=== PATIENT | female | born 1935 | race Hispanic/Latino ===

== ENCOUNTER 2017-10-21 07:03 | Day surgery (SDC) | payer MEDICARE ==
[2017-10-21 07:49] VITALS: BMI 16.5
[2017-10-21] MEDS ORDERED: Etomidate 20 mg/10ml Inj IV ONE (08:50)
[2017-10-21] MEDS ORDERED: Propofol 10 mg/ml Inj (20 ML) ONE (08:50)
[2017-10-21] MEDS ORDERED: ePHEDrine 50 mg/ml Inj ONE (08:51)
--- NOTE | 2017-10-21 08:54 | CP.SDSHP ---
Same Day Surgery H & P - History Proposed Procedure: colonoscopy Pre-Op Diagnosis: constipation. rectal bleeding. colon mass on CT Scan. weight loss - Previous Medical/Surgical History Previous Surgical History: Laparoscopy many years ago - Allergies Allergies: Allergies No Known Allergies Allergy (Verified 10/21/17 07:48) - Physical Exam General Appearance: cachectic and frail Vital Signs: Vital Signs 10/21/17 10/21/17 08:05 08:30 Pulse Rate 107 H 107 H Mental Status: Alert & Oriented x3 Neuro: WNL Heart: WNL Lungs: WNL GI: WNL - {Optional Preform as Required} DIRECTOR OF EMERGENCY NURSING: Other (Perineal cystic mass) - Impression Impression: constipation. rectal bleeding. abnormal CT Scan of colon. weight loss Pt. Evaluated Today:Candidate for Anesthesia & Procedure: Yes - Date & Time Date: 10/21/17 Time: 08:54 Short Stay Discharge - Short Stay Discharge Admitting Diagnosis/Reason for Visit: ABNORMAL IMAGING, CONSTIPATION UNSPEC, DIVIRTICUL Disposition: HOME/ ROUTINE
[2017-10-21] MEDS ORDERED: Lactated Ringer's 1,000 ML IV ONE (08:55)
[2017-10-21 09:41] VITALS: TEMP 98.4
[2017-10-21 10:19] VITALS: O2SAT 100
[2017-10-21 14:13] VITALS: BP 137/89; PULSE 99; RESP 16
--- NOTE | 2017-10-21 15:56 | CP.PCM.PCO ---
Physician Communication Note - Physician Communication Note Physician Communication Note: Handwritten progress note in chart. Discussed with PMD and GI.
== END 2017-10-21 14:15 | disposition home or self-care (01) ==
LOC: C.ENDO 07:03
PROVIDERS: ATTEND Internal Medicine Gastroenterology
DX: D12.3 Benign neoplasm of transverse colon (principal); K57.30 Diverticulosis of large intestine without perforation or abscess without bleeding; K64.2 Third degree hemorrhoids; K59.00 Constipation, unspecified; R63.4 Abnormal weight loss
CPT/HCPCS: 45380; 45381; 88305; J2001; J2405; J2704; J7120

== ENCOUNTER 2017-11-19 06:02 | Inpatient (IN) | payer MEDICARE ==
[2017-11-19] MEDS ORDERED: ceFAZolin IV 1 gm in Dextrose 1 GM/50 ML BAG IVPB ONE (07:59)
[2017-11-19] MEDS ORDERED: metroNIDAZOLE IV 500 mg/100 ml 500 MG/100 ML BAG ONE (08:00)
[2017-11-19] MEDS ORDERED: Propofol 10 mg/ml Inj (20 ML) ONE (08:08)
[2017-11-19] MEDS ORDERED: Rocuronium 10 mg/ml (5 ml) ONE (08:15)
[2017-11-19] MEDS ORDERED: Phenylephrine 10 mg/ml Inj ONE (08:15)
[2017-11-19] MEDS ORDERED: Lactated Ringer's 1,000 ML IV ONE (08:23)
[2017-11-19] MEDS ORDERED: HYDROmorphone 0.5 mg/0.5 ml ISec IVP PRN ×2 (09:48→10:09)
[2017-11-19] MEDS ORDERED: Lactated Ringer's 1,000 ML IV PRN (09:48)
[2017-11-19] MEDS ORDERED: Neostigmine Methylsulfate 3mg/3ml Syringe IV ONE (10:00)
--- NOTE | 2017-11-19 10:03 | PCM.SURG1 ---
Surgeon's Initial Post Op Note - Surgeon's Notes Surgeon: nuvia Anglesmith Helper: nat Type of Anesthesia: General Endo Anesthesia Administered By: deborah Pre-Operative Diagnosis: polyp hepatic flexure of colon. vulva lesion Operative Findings: no evidence of metastatic disease. primary anastomosis Post-Operative Diagnosis: same Operation Performed: right colectomy and bx of vulvar lesion Specimen/Specimens Removed: right colon and vulvar lesion Estimated Blood Loss: EBL {In ML}: 25 Blood Products Given: N/A Drains Used: Ed Mares Post-Op Condition: Good Date of Surgery/Procedure: 11/19/17 Time of Surgery/Procedure: 10:02
[2017-11-19] MEDS ORDERED: Labetalol 25mg/5ml Syringe IVP PRN (11:03)
[2017-11-19] MEDS ORDERED: Dextrose 5%/0.45% NS 1,000 ML IV ONE (11:20)
[2017-11-19] MEDS: HYDROmorphone 0.5 mg/0.5 ml ISec IVP PRN ×2 (11:55→15:11)
[2017-11-19] MEDS: ceFAZolin IV 1 gm in Dextrose 1 GM/50 ML BAG IVPB SCH (16:30)
--- NOTE | 2017-11-19 16:48 | CP.PCM.CON ---
History of Present Illness - History of Present Illness History of Present Illness: This is an 82 year old woman admitted for elective right colon resection. Patient was originally evaluated 10/13/2017 for chronic constipation of two years' duration. At that time, she had not had a bowel movement in two weeks and was dismpacting herself as needed. She denied having rectal bleeding. Her appetite has been poor, and she has lost 20 pounds. She denied having nausea, vomiting, difficulty swallowing and heartburn. Colonoscopy 10/21/2017 showed a 4 cm sessile polyp at the hepatic flexure and diverticulosis of the sigmoid colon. In addition, a lesion of the vulva was identified. The polyp was considered not to be amenable to endoscopic resection , and the patient was referred for colectomy. Review of Systems - Review of Systems All systems: reviewed and no additional remarkable complaints except - Constitutional Constitutional: Anorexia, Weight Loss - Gastrointestinal Gastrointestinal: Constipation. absent: Diarrhea, Dysphagia, Heartburn, Hematochezia, Nausea, Vomiting - Reproductive: Female Reproductive:Female: Genital Lesions Past Patient History - Past Medical History & Family History Past Medical History?: Yes - Past Social History Smoking Status: Never Smoked - CARDIAC Hx Cardiac Disorders: Yes Hx Cardia Arrhythmia: Yes (ATRIAL FIB) Hx Heart Attack: No - INTEGUMENTARY Hx Dermatological Problems: Yes Other/Comment: HAS SPOTTED DARK SPOTS ALL OVER BACK. PT. CLAIMS HER SKIN GETS VERY DRY IN THE WINTER, AND TENDS TO SCRATCHES THEM AND THEY LEAVE SCARS. - GASTROINTESTINAL Hx Gastrointestinal Disorders: Yes Hx Hemorrhoids: Yes Other/Comment: SLIGHT RECTAL BLEEDING CONSTIPATION - SURGICAL HISTORY Hx Surgeries: Yes Other/Comment: "LESIONS REMOVED FROM INSIDE ABDOMEN" PT. CLAIMS SHE HAS NEVER GONE TO A PMD HER ENTIRE LIFE FOR ROUTINE CHECK-UPS, AND HAS NO HEALTH ISSUES. - ANESTHESIA Hx Anesthesia: Yes Hx Anesthesia Reactions: No Hx Malignant Hyperthermia: No Has any member of the family had a problem w/ anesthesia?: No Meds Allergies/Adverse Reactions: Allergies Allergy/AdvReac Type Severity Reaction Status Date / Time No Known Allergies Allergy Verified 10/21/17 07:48 - Medications Medications: Current Medications Heparin Sodium (Porcine) (Heparin) 5,000 units SC Q8 [facility] Last Admin: 11/19/17 14:00 Dose: 5,000 units Hydromorphone/Sodium Chloride (Dilaudid Geophysical Prospecting Surveyor) 6 mg IV Q4H PRN; Protocol PRN Reason: Pain, moderate (4-7) Lactated Ringer's (Lactated Ringer's) 1,000 mls @ 1,000 mls/hr IV .Q1H PRN PRN Reason: Hypotension Cefazolin Sodium/Dextrose (Ancef Iv 1 Gm Duplex) 1 gm in 50 mls @ 100 mls/hr IVPB Q8H [facility] Stop: 11/20/17 10:00 Metronidazole (Flagyl) 500 mg in 100 mls @ 100 mls/hr IVPB Q8 [facility] Stop: 11/20/17 10:00 Dextrose/Sodium Chloride (Dextrose 5%/0.45% Ns 1000 Ml) 1,000 mls @ 100 mls/hr IV .Q10H [facility] Metoprolol Succinate (Toprol Xl) 25 mg PO DAILY [facility] Physical Exam - Head Exam Head Exam: ATRAUMATIC, NORMOCEPHALIC - Neck Exam Neck exam: Negative for: Lymphadenopathy, Thyromegaly - Respiratory Exam Respiratory Exam: NORMAL BREATHING PATTERN. absent: Rales, Rhonchi, Wheezes - Cardiovascular Exam Cardiovascular Exam: REGULAR RHYTHM, +S1, +S2. absent: Gallop, Rubs, Systolic Murmur - GI/Abdominal Exam GI & Abdominal Exam: Diminished Bowel Sounds, Soft, Tenderness. absent: Mass, Organomegaly Additional comments: Incisional tenderness, mild - Rectal Exam Rectal Exam: Deferred - Extremities Exam Extremities exam: Negative for: calf tenderness, pedal edema Results - Vital Signs Recent Vital Signs: Last Vital Signs Temp 97.5 F L 11/19/17 09:58 Pulse 92 H 11/19/17 15:00 Resp 11 L 11/19/17 15:00 BP 162/84 H 11/19/17 15:00 Pulse Ox 100 11/19/17 15:00 - Labs Labs: Laboratory Results - last 24 hr 11/19/17 07:29 Blood Type A POSITIVE Antibody Screen Negative Assessment & Plan (1) Mass of hepatic flexure of colon Assessment and Plan: Patient is S/P right hemicolectomy for a large polypoid lesion at the hepatic flexure. We will check the pathology report before deciding on the need for further treatment. Post op care as per Dr. Hughes. Status: Acute
[2017-11-19] MEDS: metroNIDAZOLE IV 500 mg/100 ml 500 MG/100 ML BAG IVPB SCH ×2 (17:25→22:00)
[2017-11-19] MEDS: Dextrose 5%/0.45% NS 1,000 ML IV SCH ×3 (19:54→22:35)
--- NOTE | 2017-11-19 20:45 | OP ---
PROCEDURE DATE: 11/19/2017 PREOPERATIVE DIAGNOSES: Polyp at hepatic flexure and vulva lesion. PROCEDURE CARRIED OUT: 1. Right colectomy. 2. Biopsy of vulva lesion. SURGEON: Flash Hughes Jr., MD. FIRST HELPER: RYDER Browne. ANESTHESIA ADMINISTERED BY: Dr. Vanegas. HISTORY: Patient is an elderly woman, found to have a large polyp at the hepatic flexure, in addition an ulcerated but nonbleeding lesion on the right side of the labia majora of vulva. OPERATIVE FINDINGS: There is no evidence of intraabdominal metastasis. The gallbladder was still present. The rest of the intraoperative findings were unremarkable. There was slight puckering in the region of the tumor, which was easily palpable. There were no other polyps palpable throughout the colon and there were no other abnormalities detected on examination. The lesion in the vulva was biopsied at the initiation of the procedure and submitted for permanent section. DESCRIPTION OF PROCEDURE: Patient was given general anesthesia, intravenous antibiotics. Venodyne boots were applied. Standard midline incision was carried out with the above-mentioned findings, liver being fine, etc. There was a previous right subcostal incision. After mobilizing the colon, we carried out a right colectomy and carried out a stapled anastomosis using a 70 stapler. After this had been done, we then closed the mesentery, closed the abdomen with running sutures of Novafil and PDS and closed the skin with skin clips. There were no operative complications or findings. The operation carried out, right colectomy and two biopsies of vulva lesion. Flash Hughes Jr., MD cc: Thuan Hightower MD;
--- NOTE | 2017-11-20 01:22 | CP.PCM.CON ---
History of Present Illness - History of Present Illness History of Present Illness: 82 F with h/o afib, recently s/p cath, h/o colonoscopy showing hepatic flexure lesion, h/o vulval lesion, patient transferred to ICU post right hemicolectomy, and vulval lesion biopsy. Patient's rhythm is afib with controlled rated, she is on CHIEF NURSING OFFICER dilaudid, ivf, abx. Patient is alert, c/o some pain at site of surg, not in distress. PMH as above PSH as above Allergies NKDA Social lives alone, denies smoking, alcohol, illicit drugs Family history not contributory Home meds metoprolol, in hospital meds reviewed Review of Systems - Review of Systems All systems: reviewed and no additional remarkable complaints except (HPI) Review of Systems: HPI Past Patient History - Past Medical History & Family History Past Medical History?: Yes - Past Social History Smoking Status: Never Smoked Alcohol: None Drugs: Denies Home Situation {Lives}: Alone - CARDIAC Hx Cardiac Disorders: Yes Hx Cardia Arrhythmia: Yes (ATRIAL FIB) Hx Heart Attack: No - INTEGUMENTARY Hx Dermatological Problems: Yes Other/Comment: HAS SPOTTED DARK SPOTS ALL OVER BACK. PT. CLAIMS HER SKIN GETS VERY DRY IN THE WINTER, AND TENDS TO SCRATCHES THEM AND THEY LEAVE SCARS. - MUSCULOSKELETAL/RHEUMATOLOGICAL Hx Falls: No - GASTROINTESTINAL Hx Gastrointestinal Disorders: Yes Hx Hemorrhoids: Yes Other/Comment: SLIGHT RECTAL BLEEDING CONSTIPATION - PSYCHIATRIC Hx Substance Use: No - SURGICAL HISTORY Hx Surgeries: Yes Other/Comment: "LESIONS REMOVED FROM INSIDE ABDOMEN" PT. CLAIMS SHE HAS NEVER GONE TO A PMD HER ENTIRE LIFE FOR ROUTINE CHECK-UPS, AND HAS NO HEALTH ISSUES. - ANESTHESIA Hx Anesthesia: Yes Hx Anesthesia Reactions: No Hx Malignant Hyperthermia: No Has any member of the family had a problem w/ anesthesia?: No Meds Allergies/Adverse Reactions: Allergies Allergy/AdvReac Type Severity Reaction Status Date / Time No Known Allergies Allergy Verified 10/21/17 07:48 - Medications Medications: Current Medications Heparin Sodium (Porcine) (Heparin) 5,000 units SC Q8 [facility] Last Admin: 11/19/17 22:40 Dose: 5,000 units Hydromorphone/Sodium Chloride (Dilaudid Billboard Erector) 6 mg IV Q4H PRN; Protocol PRN Reason: Pain, moderate (4-7) Last Admin: 11/19/17 17:00 Dose: 6 mg Lactated Ringer's (Lactated Ringer's) 1,000 mls @ 1,000 mls/hr IV .Q1H PRN PRN Reason: Hypotension Cefazolin Sodium/Dextrose (Ancef Iv 1 Gm Duplex) 1 gm in 50 mls @ 100 mls/hr IVPB Q8H [facility] Stop: 11/20/17 10:00 Last Admin: 11/19/17 16:30 Dose: 50 mls Metronidazole (Flagyl) 500 mg in 100 mls @ 100 mls/hr IVPB Q8 [facility] Stop: 11/20/17 10:00 Last Admin: 11/19/17 22:00 Dose: 100 mls/hr Dextrose/Sodium Chloride (Dextrose 5%/0.45% Ns 1000 Ml) 1,000 mls @ 100 mls/hr IV .Q10H [facility] Last Admin: 11/19/17 22:35 Dose: 100 mls/hr Metoprolol Succinate (Toprol Xl) 25 mg PO DAILY [facility] Physical Exam - Additional Findings Additional findings: * HEENT BETY * Neck Supple * Chest Clear, no wheezes, or rales * CVS irregular, no gallop or rub * PA soft, firm, BUTCH drain on right side, dressing on incision site * Ext right hamstrings are ecchymosis * GROUP SOCIAL WORKER awake oriented x3 no fnd. * Skin dry scratch leonardo on both elbows Results - Vital Signs Recent Vital Signs: Last Vital Signs Temp 97.9 F 11/20/17 00:00 Pulse 88 11/20/17 00:20 Resp 10 L 11/20/17 00:20 BP 151/76 H 11/20/17 00:14 Pulse Ox 91 L 11/20/17 00:20 - Labs Labs: Laboratory Results - last 24 hr 11/19/17 07:29 Blood Type A POSITIVE Antibody Screen Negative Assessment & Plan - Assessment and Plan (Free Text) Assessment: * S/p right hemicolectomy for hepatic flexure lesion, and vulval biopsy * H/o afib, controlled rate * Clinically dry, will increase ivf * Dry skin excoriation. Plan: * IVF * continue metoprolol * labs * GI/Dvt prophylaxis * Supportive care, lachydrin * pain control currently on dialudid finished goods inspector * See orders for detail.
[2017-11-20] MEDS: Dextrose 5%/0.45% NS 1,000 ML IV SCH ×3 (01:28→17:24)
[2017-11-20] MEDS: ceFAZolin IV 1 gm in Dextrose 1 GM/50 ML BAG IVPB SCH ×2 (02:15)
[2017-11-20] MEDS: metroNIDAZOLE IV 500 mg/100 ml 500 MG/100 ML BAG IVPB SCH (05:50)
[2017-11-20 06:40] LABS: BASO % 0.3 % (0.0-2.0); EOS % 0.5 % (0.0-4.0); HEMOGLOBIN 10.7 g/dL (11.0-16.0); LYMPH # 0.9 K/uL (1.0-4.3); LYMPH % 10.7 % (20.0-40.0); MEAN CELL VOLUME 92.6 fL (81.0-99.0); MEAN CORPUSCULAR HEMOGLOBIN 32.3 pg (27.0-31.0); MEAN CORPUSCULAR HGB CONC 34.9 g/dL (33.0-37.0); MEAN PLATELET VOLUME 9.5 fL (7.2-11.7); MONO # 0.8 K/uL (0.0-0.8); MONO % 9.1 % (0.0-10.0); NEUT % 79.4 % (50.0-75.0); RBC 3.32 Mil/uL (3.80-5.20); RED CELL DISTRIBUTION WIDTH 15.2 % (11.5-14.5); WHITE BLOOD COUNT 8.8 K/uL (4.8-10.8)
[2017-11-20 06:58] LABS: ALB/GLOB RATIO 1.1 (1.0-2.1); ALBUMIN 3.4 g/dL (3.5-5.0); ALT/SGPT 29 U/L (9-52); AST/SGOT 25 U/L (14-36); BLOOD UREA NITROGEN 6 mg/dL (7-17); CALCIUM 7.9 mg/dl (8.6-10.4); GFR AFRICAN-AMERICAN > 60; GFR NON-AFRICAN AMERICAN > 60; MAGNESIUM 1.8 mg/dL (1.6-2.3)
--- NOTE | 2017-11-20 09:09 | CP.PCM.PN ---
Subjective - Date & Time of Evaluation Date of Evaluation: 11/20/17 Time of Evaluation: 09:06 - Subjective Subjective: Surgery Pt s&e. Pt underwent surgery yesterday and tolerated it well. Pain controlled w TEST LAB TECHNICIAN. No Bm. Denies F/C/N/V/D/CP/SOB. Objective - Vital Signs/Intake and Output Vital Signs (last 24 hours): Temp Pulse Resp BP Pulse Ox 98.1 F 86 13 164/75 H 98 11/20/17 04:00 11/20/17 07:42 11/20/17 07:42 11/20/17 07:42 11/20/17 07:42 Intake and Output: 11/20/17 11/20/17 06:59 18:59 Intake Total 1287 125 Output Total 965 60 Balance 322 65 - Medications Medications: Current Medications Heparin Sodium (Porcine) (Heparin) 5,000 units SC Q8 [facility] Last Admin: 11/20/17 06:26 Dose: Not Given Hydromorphone/Sodium Chloride (Dilaudid Community Health Nurse Supervisor) 6 mg IV Q4H PRN; Protocol PRN Reason: Pain, moderate (4-7) Last Admin: 11/20/17 06:29 Dose: 6 mg Lactated Ringer's (Lactated Ringer's) 1,000 mls @ 1,000 mls/hr IV .Q1H PRN PRN Reason: Hypotension Cefazolin Sodium/Dextrose (Ancef Iv 1 Gm Duplex) 1 gm in 50 mls @ 100 mls/hr IVPB Q8H [facility] Stop: 11/20/17 10:00 Last Admin: 11/20/17 02:15 Dose: 100 mls/hr Metronidazole (Flagyl) 500 mg in 100 mls @ 100 mls/hr IVPB Q8 [facility] Stop: 11/20/17 10:00 Last Admin: 11/20/17 05:50 Dose: 100 mls/hr Dextrose/Sodium Chloride (Dextrose 5%/0.45% Ns 1000 Ml) 1,000 mls @ 125 mls/hr IV .Q8H [facility] Last Admin: 11/20/17 01:28 Dose: 125 mls/hr Lactic Acid (Lac-Hydrin 12% Lotion (225 G)) 0 gm EXT TID [facility] Metoprolol Succinate (Toprol Xl) 25 mg PO DAILY [facility] Potassium Chloride (K-Dur 20 Meq Er Tab) 20 meq PO DAILY [facility] - Labs Labs: 11/20/17 06:18 11/20/17 06:20 - Constitutional Appears: In Acute Distress - Head Exam Head Exam: ATRAUMATIC, NORMAL INSPECTION, NORMOCEPHALIC - Eye Exam Eye Exam: EOMI, Normal appearance, PERRL Pupil Exam: NORMAL ACCOMODATION, PERRL - ENT Exam ENT Exam: Mucous Membranes Moist, Normal Exam - Neck Exam Neck Exam: Full ROM, Normal Inspection. absent: Lymphadenopathy - Respiratory Exam Respiratory Exam: Clear to Ausculation Bilateral, NORMAL BREATHING PATTERN - Cardiovascular Exam Cardiovascular Exam: REGULAR RHYTHM, +S1, +S2. absent: Murmur - GI/Abdominal Exam GI & Abdominal Exam: Soft, Tenderness, Normal Bowel Sounds. absent: Distended Additional comments: Incisional TTP. Dressing C/D/I. Drain 155cc ss. - Exam Additional comments: Strong 2L clear urine - Extremities Exam Extremities Exam: Full ROM, Normal Capillary Refill, Normal Inspection. absent : Joint Swelling, Pedal Edema - Back Exam Back Exam: NORMAL INSPECTION - Neurological Exam Neurological Exam: Alert, Awake, CN II-XII Intact, Normal Gait, Oriented x3 - Psychiatric Exam Psychiatric exam: Normal Affect, Normal Mood - Skin Skin Exam: Dry, Intact, Normal Color, Warm Assessment and Plan - Assessment and Plan (Free Text) Assessment: POD 1 s/p R elyse colectomy -CLD -DC strong -Pain control -OOB, IS -DVT/GI ppx DW Dr. Hughes
[2017-11-20] MEDS: Potassium Chloride 20 mEq ER Tab PO SCH (10:24)
[2017-11-20] MEDS: Ammonium Lactate 12% Lotion (225 g) EXT SCH ×2 (10:25→17:21)
[2017-11-20] MEDS: Metoprolol Succinate 25 mg XL Tab PO SCH (10:25)
[2017-11-21] MEDS: Dextrose 5%/0.45% NS 1,000 ML IV SCH ×3 (01:30→19:16)
[2017-11-21] MEDS ORDERED: Oxycodone/Acetaminophen 5/325 mg Tab PO PRN (07:56)
--- NOTE | 2017-11-21 08:03 | CP.PCM.PN ---
Subjective - Date & Time of Evaluation Date of Evaluation: 11/21/17 Time of Evaluation: 08:00 - Subjective Subjective: Surgery Pt s&e. NAEON. Denies F/C/N/V/D/CP/SOB. ToleraTING cld Objective - Vital Signs/Intake and Output Vital Signs (last 24 hours): Temp Pulse Resp BP Pulse Ox 97.5 F L 99 H 9 L 142/82 100 11/21/17 04:00 11/21/17 03:42 11/21/17 03:42 11/21/17 03:42 11/21/17 03:42 Intake and Output: 11/21/17 11/21/17 06:59 18:59 Intake Total 1740 Output Total 580 Balance 1160 - Medications Medications: Current Medications Famotidine (Pepcid) 20 mg PO DAILY [facility] Last Admin: 11/20/17 10:25 Dose: 20 mg Heparin Sodium (Porcine) (Heparin) 5,000 units SC Q8 [facility] Last Admin: 11/21/17 05:59 Dose: 5,000 units Hydromorphone/Sodium Chloride (Dilaudid Bushler) 6 mg IV Q4H PRN; Protocol PRN Reason: Pain, moderate (4-7) Last Admin: 11/21/17 07:55 Dose: 6 mg Lactated Ringer's (Lactated Ringer's) 1,000 mls @ 1,000 mls/hr IV .Q1H PRN PRN Reason: Hypotension Dextrose/Sodium Chloride (Dextrose 5%/0.45% Ns 1000 Ml) 1,000 mls @ 125 mls/hr IV .Q8H [facility] Last Admin: 11/21/17 01:30 Dose: 125 mls/hr Lactic Acid (Lac-Hydrin 12% Lotion (225 G)) 0 gm EXT TID [facility] Last Admin: 11/20/17 17:21 Dose: Not Given Metoprolol Succinate (Toprol Xl) 25 mg PO DAILY [facility] Last Admin: 11/20/17 10:25 Dose: 25 mg Oxycodone/Acetaminophen (Percocet 5/325 Mg Tab) 1 tab PO Q4H PRN PRN Reason: Pain, moderate (4-7) Stop: 11/24/17 07:57 Potassium Chloride (K-Dur 20 Meq Er Tab) 20 meq PO DAILY [facility] Last Admin: 11/20/17 10:24 Dose: 20 meq - Labs Labs: 11/20/17 06:18 11/20/17 06:20 - Constitutional Appears: No Acute Distress - Head Exam Head Exam: ATRAUMATIC, NORMAL INSPECTION, NORMOCEPHALIC - Eye Exam Eye Exam: EOMI, Normal appearance, PERRL Pupil Exam: NORMAL ACCOMODATION, PERRL - ENT Exam ENT Exam: Mucous Membranes Moist, Normal Exam - Neck Exam Neck Exam: Full ROM, Normal Inspection. absent: Lymphadenopathy - Respiratory Exam Respiratory Exam: Clear to Ausculation Bilateral, NORMAL BREATHING PATTERN - Cardiovascular Exam Cardiovascular Exam: REGULAR RHYTHM, +S1, +S2. absent: Murmur - GI/Abdominal Exam GI & Abdominal Exam: Soft, Tenderness, Normal Bowel Sounds. absent: Distended, Firm, Guarding, Mass, Pulsatile Mass, Rebound Additional comments: chidi IN PLACE 200CC SS . Dressing C/D/I. - Exam Exam: NORMAL INSPECTION - Extremities Exam Extremities Exam: Full ROM, Normal Capillary Refill, Normal Inspection. absent : Joint Swelling, Pedal Edema - Back Exam Back Exam: NORMAL INSPECTION - Neurological Exam Neurological Exam: Alert, Awake, CN II-XII Intact, Oriented x3 - Psychiatric Exam Psychiatric exam: Normal Affect, Normal Mood - Skin Skin Exam: Dry, Intact, Normal Color, Warm Assessment and Plan - Assessment and Plan (Free Text) Assessment: POD 2 s/p R elyse colectomy -FLD -Pain control -OOB, IS -PT -DVT/GI ppx will DW Dr. Hughes
[2017-11-21] MEDS: Metoprolol Succinate 25 mg XL Tab PO SCH (09:22)
[2017-11-21] MEDS: Potassium Chloride 20 mEq ER Tab PO SCH (09:22)
[2017-11-21] MEDS ORDERED: Metoprolol 1 mg/ml Inj IVP STA ×2 (09:33→17:39)
[2017-11-21] MEDS: Ammonium Lactate 12% Lotion (225 g) EXT SCH ×3 (10:45→17:26)
--- NOTE | 2017-11-21 13:49 | CP.PCM.PN ---
Subjective - Date & Time of Evaluation Date of Evaluation: 11/21/17 Time of Evaluation: 13:46 - Subjective Subjective: Covering Dr Mcdaniel CC: Colon cancer follow up Right hemicolectomy. Some abdominal pain. In ICU. No BMs Denies dyspnea Pathology pending Objective - Vital Signs/Intake and Output Vital Signs (last 24 hours): Temp Pulse Resp BP Pulse Ox 97.5 F L 110 H 12 147/78 100 11/21/17 04:00 11/21/17 11:46 11/21/17 11:46 11/21/17 11:46 11/21/17 11:46 Intake and Output: 11/21/17 11/21/17 06:59 18:59 Intake Total 1740 Output Total 580 Balance 1160 - Medications Medications: Current Medications Famotidine (Pepcid) 20 mg PO DAILY [facility] Last Admin: 11/21/17 09:22 Dose: 20 mg Heparin Sodium (Porcine) (Heparin) 5,000 units SC Q8 [facility] Last Admin: 11/21/17 05:59 Dose: 5,000 units Hydromorphone/Sodium Chloride (Dilaudid Photo Mask Processor) 6 mg IV Q4H PRN; Protocol PRN Reason: Pain, moderate (4-7) Last Admin: 11/21/17 07:55 Dose: 6 mg Dextrose/Sodium Chloride (Dextrose 5%/0.45% Ns 1000 Ml) 1,000 mls @ 125 mls/hr IV .Q8H [facility] Last Admin: 11/21/17 10:43 Dose: 125 mls/hr Lactic Acid (Lac-Hydrin 12% Lotion (225 G)) 0 gm EXT TID [facility] Last Admin: 11/21/17 10:45 Dose: Not Given Metoprolol Succinate (Toprol Xl) 25 mg PO DAILY [facility] Last Admin: 11/21/17 09:22 Dose: 25 mg Oxycodone/Acetaminophen (Percocet 5/325 Mg Tab) 1 tab PO Q4H PRN PRN Reason: Pain, moderate (4-7) Stop: 11/24/17 07:57 Potassium Chloride (K-Dur 20 Meq Er Tab) 20 meq PO DAILY [facility] Last Admin: 11/21/17 09:22 Dose: 20 meq - Labs Labs: 11/20/17 06:18 11/20/17 06:20 - Constitutional Appears: No Acute Distress - Head Exam Head Exam: NORMOCEPHALIC - Eye Exam Eye Exam: absent: Scleral icterus - Respiratory Exam Respiratory Exam: NORMAL BREATHING PATTERN - Cardiovascular Exam Cardiovascular Exam: REGULAR RHYTHM - GI/Abdominal Exam GI & Abdominal Exam: Soft, Normal Bowel Sounds. absent: Distended, Guarding, Tenderness Assessment and Plan (1) Colon cancer Assessment & Plan: S/P Right hemicolectomy await pathology Post op care per surgeon. Check baseline CEA level Status: Acute
--- NOTE | 2017-11-21 19:01 | CP.PCM.CON ---
History of Present Illness - History of Present Illness History of Present Illness: The pt is an 82 year old woman with a h/o cad. A recent c cath revelaed single vessel CAD of the rca 75% stenosis. medical management was advised. Pt is in chronic atrial fibrillation. The pt had fecal impaction and a large polyp, resulting in hemicolectomy. pt has poor appetite. Pt has had rapid atrial fibrillation. Review of Systems - Review of Systems All systems: reviewed and no additional remarkable complaints except (as above.) Past Patient History - Past Medical History & Family History Past Medical History?: Yes - Past Social History Smoking Status: Never Smoked Alcohol: None Drugs: Denies Home Situation {Lives}: Alone - CARDIAC Hx Cardiac Disorders: Yes - INTEGUMENTARY Hx Dermatological Problems: Yes Other/Comment: HAS SPOTTED DARK SPOTS ALL OVER BACK. PT. CLAIMS HER SKIN GETS VERY DRY IN THE WINTER, AND TENDS TO SCRATCHES THEM AND THEY LEAVE SCARS. - MUSCULOSKELETAL/RHEUMATOLOGICAL Hx Falls: No - GASTROINTESTINAL Hx Gastrointestinal Disorders: Yes Hx Hemorrhoids: Yes Other/Comment: SLIGHT RECTAL BLEEDING CONSTIPATION - PSYCHIATRIC Hx Substance Use: No - SURGICAL HISTORY Hx Surgeries: Yes Other/Comment: "LESIONS REMOVED FROM INSIDE ABDOMEN" PT. CLAIMS SHE HAS NEVER GONE TO A PMD HER ENTIRE LIFE FOR ROUTINE CHECK-UPS, AND HAS NO HEALTH ISSUES. - ANESTHESIA Hx Anesthesia: Yes Hx Anesthesia Reactions: No Hx Malignant Hyperthermia: No Has any member of the family had a problem w/ anesthesia?: No Meds Allergies/Adverse Reactions: Allergies Allergy/AdvReac Type Severity Reaction Status Date / Time No Known Allergies Allergy Verified 10/21/17 07:48 - Medications Medications: Current Medications Docusate Sodium (Colace) 100 mg PO DAILY [facility] Famotidine (Pepcid) 20 mg PO DAILY [facility] Last Admin: 11/21/17 09:22 Dose: 20 mg Heparin Sodium (Porcine) (Heparin) 5,000 units SC Q8 [facility] Last Admin: 11/21/17 15:00 Dose: 5,000 units Hydromorphone HCl (Dilaudid) 0.5 mg IVP Q4H PRN PRN Reason: Pain, severe (8-10) Hydromorphone/Sodium Chloride (Dilaudid [employer]) 6 mg IV Q4H PRN; Protocol PRN Reason: Pain, moderate (4-7) Last Admin: 11/21/17 07:55 Dose: 6 mg Dextrose/Sodium Chloride (Dextrose 5%/0.45% Ns 1000 Ml) 1,000 mls @ 125 mls/hr IV .Q8H [facility] Last Admin: 11/21/17 10:43 Dose: 125 mls/hr Lactic Acid (Lac-Hydrin 12% Lotion (225 G)) 0 gm EXT TID [facility] Last Admin: 11/21/17 17:26 Dose: Not Given Metoprolol Tartrate (Lopressor) 25 mg PO BID [facility] Potassium Chloride (K-Dur 20 Meq Er Tab) 20 meq PO DAILY [facility] Last Admin: 11/21/17 09:22 Dose: 20 meq Simethicone (Mylicon Chew Tab) 80 mg PO Q6 PRN PRN Reason: GI distress Physical Exam - Constitutional Appears: Older Than Stated Age, Cachectic - Eye Exam Eye Exam: EOMI Pupil Exam: NORMAL ACCOMODATION - ENT Exam ENT Exam: Mucous Membranes Dry - Neck Exam Neck exam: Positive for: Normal Inspection - Respiratory Exam Respiratory Exam: Clear to Auscultation Bilateral, NORMAL BREATHING PATTERN - Cardiovascular Exam Cardiovascular Exam: Irregular Rhythm - GI/Abdominal Exam GI & Abdominal Exam: Diminished Bowel Sounds - Exam External exam: NORMAL EXTERNAL EXAM - Extremities Exam Extremities exam: Positive for: normal inspection - Back Exam Back exam: NORMAL INSPECTION - Neurological Exam Neurological exam: Alert, CN II-XII Intact, Oriented x3 Results - Vital Signs Recent Vital Signs: Last Vital Signs Temp 97.6 F 11/21/17 12:00 Pulse 103 H 11/21/17 16:44 Resp 9 L 11/21/17 16:44 BP 156/87 H 11/21/17 16:45 Pulse Ox 100 11/21/17 16:44 - Labs Result Diagrams: 11/20/17 06:18 11/20/17 06:20 - EKG Data EKG Interpreted by: Myself (atrial fibrillation) Assessment & Plan - Assessment and Plan (Free Text) Assessment: 1. CAD is stable: beta jocelyn is advised. ASa when safely out of post op period 2. Afib: rate is not controlled. Start beta jocelyn and increase as tolerated or needed. Pt has high [id number] score and once pt is beyond the post op period , the issue of anticoagulation will be addressed.
[2017-11-21] MEDS: Simethicone 80 mg Chewtab PO PRN (19:15)
[2017-11-22] MEDS: Dextrose 5%/0.45% NS 1,000 ML IV SCH ×2 (01:00→09:37)
[2017-11-22 03:15] LABS: BASO % 0.3 % (0.0-2.0); HEMOGLOBIN 12.2 g/dL (11.0-16.0); LYMPH # 1.3 K/uL (1.0-4.3); LYMPH % 8.9 % (20.0-40.0); MEAN CELL VOLUME 92.3 fL (81.0-99.0); MEAN CORPUSCULAR HEMOGLOBIN 32.2 pg (27.0-31.0); MEAN CORPUSCULAR HGB CONC 34.8 g/dL (33.0-37.0); MEAN PLATELET VOLUME 8.8 fL (7.2-11.7); MONO # 1.3 K/uL (0.0-0.8); NEUT # 11.8 K/uL (1.8-7.0); NEUT % 81.8 % (50.0-75.0); PLATELET COUNT 326 K/uL (130-400); RBC 3.78 Mil/uL (3.80-5.20); RED CELL DISTRIBUTION WIDTH 15.2 % (11.5-14.5); WHITE BLOOD COUNT 14.5 K/uL (4.8-10.8)
[2017-11-22] MEDS: Sodium Chloride 0.9% 1,000 ML IV SCH ×3 (03:35→23:45)
[2017-11-22 03:50] LABS: ALT/SGPT 25 U/L (9-52); AST/SGOT 20 U/L (14-36); BLOOD UREA NITROGEN 7 mg/dL (7-17); CALCIUM 7.9 mg/dl (8.6-10.4); GFR AFRICAN-AMERICAN > 60; GFR NON-AFRICAN AMERICAN > 60
[2017-11-22 03:51] LABS: BANDS 1 % (0-2); LYMPHOCYTE 9 % (20-40); MONOCYTE 10 % (0-10); NEUTROPHIL 80 % (50-75); PLATELET ESTIMATE NORMAL (NORMAL); TOTAL CELLS COUNTED 100
--- NOTE | 2017-11-22 05:15 | PCM.RRT ---
TIRE CARE MANAGER Nurses Assessment - Situation Date: 11/22/17 Time TIRE CARE MANAGER was called: 02:58 TIRE CARE MANAGER Responder Arrival Time:: 02:59 TIRE CARE MANAGER Location:: I ICU Room Number: 10 TIRE CARE MANAGER Reason for Call: Tachycardia TIRE CARE MANAGER Called By: RN - IV IV Inserted during TIRE CARE MANAGER?: No - Respiratory TIRE CARE MANAGER Delivery Method: Room Air Received Nebulizer Treatments: No Was the Patient Ventilated with Bag/Mask 100% O2?: No Secretions Suctioned?: No Was the Patient Intubated?: No Was the Patient Placed on a Ventilator?: No - Stat Labs Ordered TIRE CARE MANAGER Stat Labs Ordered: CBC, BMP CPR started during TIRE CARE MANAGER?: No - Recommendations 5) TIRE CARE MANAGER Level of Care Recommendations: Remain in current setting I.Reason for TIRE CARE MANAGER - A) Acute Change in Patient: (Select all that apply): Acute change in heart rate less than 50 or greater than 120 - Neurological Status (Select all that apply): Alert, Responsive - Constitutional Appears: No Acute Distress - Head Head Exam: ATRAUMATIC, NORMAL INSPECTION - Eyes Eye Exam: EOMI, Normal appearance - Respiratory Exam Respiratory Exam: Clear to Ausculation Bilateral, NORMAL BREATHING PATTERN. absent: Rales, Rhonchi, Wheezes - Cardiovascular Exam Cardiovascular Exam: Tachycardia, Irregular Rhythm, +S1, +S2 - Neurological Exam Neurological Exam: Alert, Awake, Oriented x3 - Extremities Exam Extremities Exam: Normal Inspection Plan - Assessment of Findings&Treatment Plan TIRE CARE MANAGER was called at 2:58 for tachycardia, HR was in the 180-190s Patient had been vomiting and in pain, she is post op day#3 from R elyse colectomy While evaluating the patient, HR improved to the low 100s global president notified of change in patient status STAT CBC and CMP were ordered, Hgb was noted to be 12.2, patient also with Na 119 Patient was started on Normal Saline at 100cc/hr
[2017-11-22] MEDS ORDERED: Metoprolol 1 mg/ml Inj IVP PRN (09:18)
[2017-11-22] MEDS: Potassium Chloride 20 mEq ER Tab PO SCH (09:25)
[2017-11-22] MEDS: Ammonium Lactate 12% Lotion (225 g) EXT SCH ×3 (09:25→17:10)
--- NOTE | 2017-11-22 09:26 | CP.PCM.PN ---
Subjective - Date & Time of Evaluation Date of Evaluation: 11/22/17 Time of Evaluation: 09:23 - Subjective Subjective: Surgery Pt s&e. Tachycardic overnight. Resolved spontaneously. + Bm w some blood. Minimal voiding. Bladder scan 700cc. Pain cotnrolled. Objective - Vital Signs/Intake and Output Vital Signs (last 24 hours): Temp Pulse Resp BP Pulse Ox 98.7 F 97 H 10 L 147/77 97 11/22/17 08:00 11/22/17 09:00 11/22/17 09:00 11/22/17 08:45 11/22/17 09:00 Intake and Output: 11/22/17 11/22/17 06:59 18:59 Intake Total 925 780 Output Total 300 520 Balance 625 260 - Medications Medications: Current Medications Docusate Sodium (Colace) 100 mg PO DAILY [facility] Last Admin: 11/21/17 19:15 Dose: 100 mg Famotidine (Pepcid) 20 mg PO DAILY [facility] Last Admin: 11/21/17 09:22 Dose: 20 mg Heparin Sodium (Porcine) (Heparin) 5,000 units SC Q8 [facility] Last Admin: 11/22/17 06:39 Dose: Not Given Hydromorphone HCl (Dilaudid) 0.5 mg IVP Q4H PRN PRN Reason: Pain, severe (8-10) Dextrose/Sodium Chloride (Dextrose 5%/0.45% Ns 1000 Ml) 1,000 mls @ 125 mls/hr IV .Q8H [facility] Last Admin: 11/22/17 01:00 Dose: Not Given Sodium Chloride (Sodium Chloride 0.9%) 1,000 mls @ 100 mls/hr IV .Q10H [facility] Last Admin: 11/22/17 03:35 Dose: 100 mls/hr Ketorolac Tromethamine (Toradol) 10 mg PO Q6 PRN PRN Reason: Pain, Mild (1-3) Lactic Acid (Lac-Hydrin 12% Lotion (225 G)) 0 gm EXT TID [facility] Last Admin: 11/21/17 17:26 Dose: Not Given Metoprolol Tartrate (Lopressor) 25 mg PO BID [facility] Metoprolol Tartrate (Lopressor) 5 mg IVP Q8 PRN PRN Reason: Heart rate Potassium Chloride (K-Dur 20 Meq Er Tab) 20 meq PO DAILY [facility] Last Admin: 11/21/17 09:22 Dose: 20 meq Simethicone (Mylicon Chew Tab) 80 mg PO Q6 PRN PRN Reason: GI distress Last Admin: 11/21/17 19:15 Dose: 80 mg Tramadol HCl (Ultram) 50 mg PO TID PRN PRN Reason: Pain, moderate (4-7) - Labs Labs: 11/22/17 03:12 11/22/17 03:12 - Constitutional Appears: Non-toxic - Head Exam Head Exam: ATRAUMATIC, NORMAL INSPECTION, NORMOCEPHALIC - Eye Exam Eye Exam: EOMI, Normal appearance, PERRL Pupil Exam: NORMAL ACCOMODATION, PERRL - ENT Exam ENT Exam: Mucous Membranes Moist, Normal Exam - Neck Exam Neck Exam: Full ROM, Normal Inspection. absent: Lymphadenopathy - Respiratory Exam Respiratory Exam: Clear to Ausculation Bilateral, NORMAL BREATHING PATTERN - Cardiovascular Exam Cardiovascular Exam: Tachycardia, +S1, +S2. absent: Murmur - GI/Abdominal Exam GI & Abdominal Exam: Distended, Guarding, Soft, Tenderness, Normal Bowel Sounds. absent: Firm, Rigid, Hernia, Mass, Organomegaly, Pulsatile Mass, Rebound Additional comments: Incisoin C/D?I. Drain SS 220/12hrs. - Extremities Exam Extremities Exam: Full ROM, Normal Capillary Refill, Normal Inspection. absent : Joint Swelling, Pedal Edema - Back Exam Back Exam: NORMAL INSPECTION - Neurological Exam Neurological Exam: Alert, Awake, CN II-XII Intact, Oriented x3 - Psychiatric Exam Psychiatric exam: Normal Affect, Normal Mood - Skin Skin Exam: Dry, Intact, Normal Color, Warm Assessment and Plan - Assessment and Plan (Free Text) Assessment: POD 2 s/p R elyse colectomy : urinary retention -Insert Villar -Intake and output -Soft diet -Pain control -OOB, IS -PT -DVT/GI ppx DW Dr. Hughes
--- NOTE | 2017-11-22 11:06 | CP.PCM.PN ---
Subjective - Date & Time of Evaluation Date of Evaluation: 11/22/17 Time of Evaluation: 11:03 - Subjective Subjective: Covering Dr Mcdaniel CC: Follow up colon tumor Several issues have emerged: hyponatremia, rapid AFib, Leukocytosis. Colon pathology pending In ICU. Abdominal discomfort. Passing flatus. No BM Objective - Vital Signs/Intake and Output Vital Signs (last 24 hours): Temp Pulse Resp BP Pulse Ox 98.7 F 97 H 10 L 147/77 97 11/22/17 08:00 11/22/17 09:00 11/22/17 09:00 11/22/17 09:25 11/22/17 09:00 Intake and Output: 11/22/17 11/22/17 06:59 18:59 Intake Total 925 780 Output Total 300 520 Balance 625 260 - Medications Medications: Current Medications Docusate Sodium (Colace) 100 mg PO DAILY [facility] Last Admin: 11/22/17 09:24 Dose: 100 mg Famotidine (Pepcid) 20 mg PO DAILY [facility] Last Admin: 11/22/17 09:25 Dose: 20 mg Heparin Sodium (Porcine) (Heparin) 5,000 units SC Q8 [facility] Last Admin: 11/22/17 06:39 Dose: Not Given Hydromorphone HCl (Dilaudid) 0.5 mg IVP Q4H PRN PRN Reason: Pain, severe (8-10) Last Admin: 11/22/17 10:35 Dose: 0.5 mg Dextrose/Sodium Chloride (Dextrose 5%/0.45% Ns 1000 Ml) 1,000 mls @ 125 mls/hr IV .Q8H [facility] Last Admin: 11/22/17 09:37 Dose: Not Given Sodium Chloride (Sodium Chloride 0.9%) 1,000 mls @ 100 mls/hr IV .Q10H [facility] Last Admin: 11/22/17 03:35 Dose: 100 mls/hr Ketorolac Tromethamine (Toradol) 10 mg PO Q6 PRN PRN Reason: Pain, Mild (1-3) Lactic Acid (Lac-Hydrin 12% Lotion (225 G)) 0 gm EXT TID [facility] Last Admin: 11/22/17 09:25 Dose: 1 applic Metoprolol Tartrate (Lopressor) 25 mg PO BID [facility] Last Admin: 01/06/18 09:25 Dose: 25 mg Metoprolol Tartrate (Lopressor) 5 mg IVP Q8 PRN PRN Reason: Heart rate Potassium Chloride (K-Dur 20 Meq Er Tab) 20 meq PO DAILY [facility] Last Admin: 11/22/17 09:25 Dose: 20 meq Simethicone (Mylicon Chew Tab) 80 mg PO Q6 PRN PRN Reason: GI distress Last Admin: 11/21/17 19:15 Dose: 80 mg Tramadol HCl (Ultram) 50 mg PO TID PRN PRN Reason: Pain, moderate (4-7) - Labs Labs: 11/22/17 03:12 11/22/17 03:12 - Constitutional Appears: Chronically Ill - Head Exam Head Exam: NORMOCEPHALIC - Eye Exam Eye Exam: absent: Scleral icterus - Respiratory Exam Respiratory Exam: NORMAL BREATHING PATTERN - Cardiovascular Exam Cardiovascular Exam: Tachycardia, Irregular Rhythm - GI/Abdominal Exam GI & Abdominal Exam: Soft, Normal Bowel Sounds. absent: Distended, Tenderness Assessment and Plan (1) Colon cancer Assessment & Plan: S/P right hemicolectomy, pathology from OR is pending. Medical and cardiac issues to be addresses by primary medical team and Cardiology Status: Acute
[2017-11-22] MEDS: diltiaZEM 180 mg/24 Hours CD Cap PO SCH (12:13)
[2017-11-22] MEDS: Simethicone 80 mg Chewtab PO PRN (13:13)
--- NOTE | 2017-11-22 18:41 | CP.PCM.PN ---
Subjective - Date & Time of Evaluation Date of Evaluation: 11/22/17 Time of Evaluation: 18:38 - Subjective Subjective: Seen and examined No chest pain or palpitations Complains of gas abdominal pain Objective - Vital Signs/Intake and Output Vital Signs (last 24 hours): Temp Pulse Resp BP Pulse Ox 98.3 F 113 H 20 159/87 H 95 11/22/17 16:00 11/22/17 16:00 11/22/17 16:00 11/22/17 17:10 11/22/17 16:00 Intake and Output: 11/22/17 11/22/17 06:59 18:59 Intake Total 925 780 Output Total 300 570 Balance 625 210 - Medications Medications: Current Medications Diltiazem HCl (Cardizem Cd) 180 mg PO DAILY [facility] Last Admin: 11/22/17 12:13 Dose: 180 mg Docusate Sodium (Colace) 100 mg PO DAILY [facility] Last Admin: 11/22/17 09:24 Dose: 100 mg Famotidine (Pepcid) 20 mg PO DAILY [facility] Last Admin: 11/22/17 09:25 Dose: 20 mg Heparin Sodium (Porcine) (Heparin) 5,000 units SC Q8 [facility] Last Admin: 11/22/17 15:16 Dose: 5,000 units Hydromorphone HCl (Dilaudid) 0.5 mg IVP Q4H PRN PRN Reason: Pain, severe (8-10) Last Admin: 11/22/17 10:35 Dose: 0.5 mg Sodium Chloride (Sodium Chloride 0.9%) 1,000 mls @ 100 mls/hr IV .Q10H [facility] Last Admin: 11/22/17 13:13 Dose: 100 mls/hr Ketorolac Tromethamine (Toradol) 10 mg PO Q6 PRN PRN Reason: Pain, Mild (1-3) Lactic Acid (Lac-Hydrin 12% Lotion (225 G)) 0 gm EXT TID [facility] Last Admin: 11/22/17 17:10 Dose: 1 applic Metoprolol Tartrate (Lopressor) 25 mg PO BID [facility] Last Admin: 11/22/17 17:10 Dose: 25 mg Metoprolol Tartrate (Lopressor) 5 mg IVP Q8 PRN PRN Reason: Heart rate Potassium Chloride (K-Dur 20 Meq Er Tab) 20 meq PO DAILY [facility] Last Admin: 11/22/17 09:25 Dose: 20 meq Simethicone (Mylicon Chew Tab) 80 mg PO Q6 PRN PRN Reason: GI distress Last Admin: 11/22/17 13:13 Dose: 80 mg Tramadol HCl (Ultram) 50 mg PO TID PRN PRN Reason: Pain, moderate (4-7) Last Admin: 11/22/17 17:56 Dose: 50 mg - Labs Labs: 11/22/17 03:12 11/22/17 03:12 - Constitutional Appears: Non-toxic, No Acute Distress, Cachectic - Head Exam Head Exam: ATRAUMATIC, NORMOCEPHALIC - Eye Exam Eye Exam: EOMI, PERRL - Respiratory Exam Respiratory Exam: Clear to Ausculation Bilateral - Cardiovascular Exam Cardiovascular Exam: Irregular Rhythm, +S1, +S2 - GI/Abdominal Exam GI & Abdominal Exam: Soft, Tenderness - Neurological Exam Neurological Exam: Alert, Awake, CN II-XII Intact, Oriented x3 Assessment and Plan (1) Chronic atrial fibrillation Status: Acute - Assessment and Plan (Free Text) Assessment: Borderline controlled rate Worse with patient's movement and pain On metoprolol 50 mg twice daily and diltiazem CD Will increase metoprolol to 50 mg twice daily Start aspirin when cleared by surgery
--- NOTE | 2017-11-23 07:17 | CP.PCM.PN ---
Subjective - Date & Time of Evaluation Date of Evaluation: 11/23/17 Time of Evaluation: 07:17 - Subjective Subjective: General Surgery Dr. Hughes Pt S&E @bedside. YEYOO. Pt c/o pain that started 5 days ago. Pt reminded of the surgery that occurred at that time. Pt reports pain never goes away. Pt has had multiple BMs but pt refusing to eat or drink. 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 This narrowing was not appreciated on colonoscopy performed prior to surgery. Objective - Vital Signs/Intake and Output Vital Signs (last 24 hours): Temp Pulse Resp BP Pulse Ox 98.4 F 82 10 L 131/72 99 11/23/17 00:00 11/23/17 03:00 11/23/17 03:00 11/23/17 02:45 11/23/17 03:00 Intake and Output: 11/23/17 11/23/17 06:59 18:59 Intake Total 1400 Output Total 1250 Balance 150 - Medications Medications: Current Medications Diltiazem HCl (Cardizem Cd) 180 mg PO DAILY [facility] Last Admin: 11/22/17 12:13 Dose: 180 mg Docusate Sodium (Colace) 100 mg PO DAILY [facility] Last Admin: 11/22/17 09:24 Dose: 100 mg Famotidine (Pepcid) 20 mg PO DAILY [facility] Last Admin: 11/22/17 09:25 Dose: 20 mg Heparin Sodium (Porcine) (Heparin) 5,000 units SC Q8 [facility] Last Admin: 11/23/17 06:36 Dose: 5,000 units Hydromorphone HCl (Dilaudid) 0.5 mg IVP Q4H PRN PRN Reason: Pain, severe (8-10) Last Admin: 11/22/17 20:18 Dose: 0.5 mg Sodium Chloride (Sodium Chloride 0.9%) 1,000 mls @ 100 mls/hr IV .Q10H [facility] Last Admin: 11/22/17 23:45 Dose: Not Given Ketorolac Tromethamine (Toradol) 10 mg PO Q6 PRN PRN Reason: Pain, Mild (1-3) Lactic Acid (Lac-Hydrin 12% Lotion (225 G)) 0 gm EXT TID [facility] Last Admin: 11/22/17 17:10 Dose: 1 applic Metoprolol Tartrate (Lopressor) 5 mg IVP Q8 PRN PRN Reason: Heart rate Metoprolol Tartrate (Lopressor) 50 mg PO BID [facility] Potassium Chloride (K-Dur 20 Meq Er Tab) 20 meq PO DAILY [facility] Last Admin: 11/22/17 09:25 Dose: 20 meq Simethicone (Mylicon Chew Tab) 80 mg PO Q6 PRN PRN Reason: GI distress Last Admin: 11/22/17 13:13 Dose: 80 mg Tramadol HCl (Ultram) 50 mg PO TID PRN PRN Reason: Pain, moderate (4-7) Last Admin: 11/22/17 17:56 Dose: 50 mg - Labs Labs: 11/22/17 03:12 11/22/17 03:12 - Constitutional Appears: Non-toxic, No Acute Distress, Cachectic, Chronically Ill - Head Exam Head Exam: NORMAL INSPECTION - Eye Exam Eye Exam: Normal appearance - ENT Exam ENT Exam: Mucous Membranes Moist - Respiratory Exam Respiratory Exam: NORMAL BREATHING PATTERN - GI/Abdominal Exam GI & Abdominal Exam: Soft, Tenderness (cathleen-incisional TTP). absent: Distended , Guarding Additional comments: chanda drain w/ serous drainage dressings c/d/i - Neurological Exam Neurological Exam: Alert, Awake - Psychiatric Exam Psychiatric exam: Normal Affect, Normal Mood - Skin Skin Exam: Dry, Warm Assessment and Plan - Assessment and Plan (Free Text) Assessment: 82 y/o F POD#3 s/p R elyse colectomy w/ urinary retention - monitor UOP - ADAT - encourage PO intake - cont pain management - encourage OOB to chair/Amb/IS use - aggressive physical therapy - GI/DVT PPx Pt discussed w/ Dr. Saul Logan DO PGY2
[2017-11-23] MEDS: Sodium Chloride 0.9% 1,000 ML IV SCH ×2 (10:15→20:00)
[2017-11-23] MEDS: Potassium Chloride 20 mEq ER Tab PO SCH (10:15)
[2017-11-23] MEDS: diltiaZEM 180 mg/24 Hours CD Cap PO SCH (10:16)
[2017-11-23] MEDS: Ammonium Lactate 12% Lotion (225 g) EXT SCH ×3 (11:38→17:22)
[2017-11-24] MEDS: Sodium Chloride 0.9% 1,000 ML IV SCH ×2 (06:25→17:01)
[2017-11-24 06:56] LABS: HEMOGLOBIN 10.7 g/dL (11.0-16.0); MEAN CELL VOLUME 92.3 fL (81.0-99.0); MEAN CORPUSCULAR HEMOGLOBIN 32.1 pg (27.0-31.0); MEAN CORPUSCULAR HGB CONC 34.8 g/dL (33.0-37.0); MEAN PLATELET VOLUME 9.1 fL (7.2-11.7); RBC 3.33 Mil/uL (3.80-5.20); RED CELL DISTRIBUTION WIDTH 15.3 % (11.5-14.5); WHITE BLOOD COUNT 6.5 K/uL (4.8-10.8)
[2017-11-24 07:22] LABS: ALB/GLOB RATIO 1.1 (1.0-2.1); ALBUMIN 2.8 g/dL (3.5-5.0); ALT/SGPT 31 U/L (9-52); AST/SGOT 25 U/L (14-36); BLOOD UREA NITROGEN 17 mg/dL (7-17); CALCIUM 7.8 mg/dl (8.6-10.4); GFR AFRICAN-AMERICAN > 60; GFR NON-AFRICAN AMERICAN > 60
[2017-11-24] MEDS: Potassium Chloride 20 mEq ER Tab PO SCH (10:00)
[2017-11-24] MEDS: diltiaZEM 180 mg/24 Hours CD Cap PO SCH (10:00)
[2017-11-24] MEDS: Ammonium Lactate 12% Lotion (225 g) EXT SCH ×3 (10:00→17:02)
--- NOTE | 2017-11-24 13:32 | CP.PCM.PN ---
Subjective - Date & Time of Evaluation Date of Evaluation: 11/24/17 Time of Evaluation: 13:28 - Subjective Subjective: Surgery Pt s&e. Pt vomited yesterday and NGT placed. Putting out 1200 cc bilious fluids. Strong in place. Xray done. shows ileus. c/o pain. Objective - Vital Signs/Intake and Output Vital Signs (last 24 hours): Temp Pulse Resp BP Pulse Ox 98.5 F 100 H 12 117/48 L 97 11/24/17 04:00 11/24/17 08:00 11/24/17 04:00 11/24/17 04:00 11/24/17 04:00 Intake and Output: 11/24/17 11/24/17 06:59 18:59 Intake Total 2399 Output Total 2004 25 Balance 395 -25 - Medications Medications: Current Medications Aspirin (Aspirin Chewable) 81 mg PO DAILY [facility] Last Admin: 11/24/17 10:00 Dose: Not Given Diltiazem HCl (Cardizem Cd) 180 mg PO DAILY [facility] Last Admin: 11/24/17 10:00 Dose: Not Given Docusate Sodium (Colace) 100 mg PO DAILY [facility] Last Admin: 11/24/17 10:00 Dose: Not Given Famotidine (Pepcid) 20 mg PO DAILY [facility] Last Admin: 11/24/17 10:00 Dose: Not Given Heparin Sodium (Porcine) (Heparin) 5,000 units SC Q8 [facility] Last Admin: 11/24/17 06:35 Dose: 5,000 units Hydromorphone HCl (Dilaudid) 0.5 mg IVP Q4H PRN PRN Reason: Pain, severe (8-10) Last Admin: 11/23/17 10:09 Dose: 0.5 mg Sodium Chloride (Sodium Chloride 0.9%) 1,000 mls @ 100 mls/hr IV .Q10H [facility] Last Admin: 11/24/17 06:25 Dose: 100 mls/hr Potassium Chloride (Potassium Chloride 20 Meq/100 Ml) 20 meq in 100 mls @ 50 mls/hr IVPB ONCE ONE Stop: 11/24/17 15:23 Ketorolac Tromethamine (Toradol) 10 mg PO Q6 PRN PRN Reason: Pain, Mild (1-3) Lactic Acid (Lac-Hydrin 12% Lotion (225 G)) 0 gm EXT TID [facility] Last Admin: 11/24/17 10:00 Dose: Not Given Metoprolol Tartrate (Lopressor) 5 mg IVP Q8 PRN PRN Reason: Heart rate Metoprolol Tartrate (Lopressor) 50 mg PO BID [facility] Last Admin: 11/24/17 10:00 Dose: Not Given Ondansetron HCl (Zofran Inj) 4 mg IVP Q6H PRN PRN Reason: Nausea/Vomiting Last Admin: 11/23/17 21:45 Dose: 4 mg Potassium Chloride (K-Dur 20 Meq Er Tab) 20 meq PO DAILY [facility] Last Admin: 11/24/17 10:00 Dose: Not Given Simethicone (Mylicon Chew Tab) 80 mg PO Q6 PRN PRN Reason: GI distress Last Admin: 11/22/17 13:13 Dose: 80 mg Tramadol HCl (Ultram) 50 mg PO TID PRN PRN Reason: Pain, moderate (4-7) Last Admin: 11/22/17 17:56 Dose: 50 mg - Labs Labs: 11/24/17 06:44 11/24/17 06:44 - Constitutional Appears: Non-toxic - Head Exam Head Exam: ATRAUMATIC, NORMAL INSPECTION, NORMOCEPHALIC - Eye Exam Eye Exam: EOMI, Normal appearance, PERRL Pupil Exam: NORMAL ACCOMODATION, PERRL - ENT Exam ENT Exam: Mucous Membranes Moist, Normal Exam - Neck Exam Neck Exam: Full ROM, Normal Inspection. absent: Lymphadenopathy - Respiratory Exam Respiratory Exam: Clear to Ausculation Bilateral, NORMAL BREATHING PATTERN - Cardiovascular Exam Cardiovascular Exam: REGULAR RHYTHM, +S1, +S2. absent: Murmur - GI/Abdominal Exam GI & Abdominal Exam: Soft, Tenderness, Normal Bowel Sounds. absent: Distended, Firm, Guarding, Rigid Additional comments: Abd TTP. - Rectal Exam Rectal Exam: NORMAL INSPECTION - Extremities Exam Extremities Exam: Full ROM, Normal Capillary Refill, Normal Inspection. absent : Joint Swelling, Pedal Edema - Back Exam Back Exam: NORMAL INSPECTION - Neurological Exam Neurological Exam: Alert, Awake, CN II-XII Intact, Oriented x3 - Psychiatric Exam Psychiatric exam: Normal Affect, Normal Mood - Skin Skin Exam: Dry, Intact, Normal Color, Warm Assessment and Plan - Assessment and Plan (Free Text) Assessment: 82 y/o F POD#4 s/p R elyse colectomy w/ urinary retention and ileus NGT 1200/ billious output Drain 600cc Strong 700cc - monitor UOP - Monitor NGT/strong/drain output - IVF - cont pain management - encourage OOB to chair/Amb/IS use - aggressive physical therapy - GI/DVT PPx Pt discussed w/ Dr. Hughes
--- NOTE | 2017-11-24 14:49 | RAD ---
HISTORY: abdominal pain COMPARISON: None available FINDINGS: Tubing noted at the level of the right abdomen; correlate clinically. Nasogastric tube. BOWEL: Nonspecific bowel gas pattern including air-filled dilated loops of bowel. Midline surgical niurka. BONES: Osseous demineralization. Scoliosis. OTHER FINDINGS: None. IMPRESSION: Nonspecific bowel gas pattern with air-filled dilated loops of bowel, possibly ileus. Midline surgical niurka. Nasogastric tube. Tubing projects over the right abdomen. Correlate clinically.
[2017-11-25] MEDS: Sodium Chloride 0.9% 1,000 ML IV SCH (03:37)
[2017-11-25 06:19] LABS: MEAN CELL VOLUME 93.1 fL (81.0-99.0); MEAN CORPUSCULAR HEMOGLOBIN 32.3 pg (27.0-31.0); MEAN CORPUSCULAR HGB CONC 34.7 g/dL (33.0-37.0); MEAN PLATELET VOLUME 8.9 fL (7.2-11.7); RBC 3.41 Mil/uL (3.80-5.20); RED CELL DISTRIBUTION WIDTH 14.6 % (11.5-14.5); WHITE BLOOD COUNT 4.2 K/uL (4.8-10.8)
[2017-11-25 06:58] LABS: ALBUMIN 2.7 g/dL (3.5-5.0); ALT/SGPT 21 U/L (9-52); AST/SGOT 26 U/L (14-36); BLOOD UREA NITROGEN 11 mg/dL (7-17); CALCIUM 7.5 mg/dl (8.6-10.4); GFR AFRICAN-AMERICAN > 60; GFR NON-AFRICAN AMERICAN > 60
[2017-11-25 08:27] LABS: MAGNESIUM 1.5 mg/dL (1.6-2.3)
[2017-11-25] MEDS ORDERED: Potassium Chloride 20 mEq/15 ml LIQ UD PO ONE ×2 (09:15→11:30)
--- NOTE | 2017-11-25 09:21 | CP.PCM.PN ---
Subjective - Date & Time of Evaluation Date of Evaluation: 11/25/17 Time of Evaluation: 09:18 - Subjective Subjective: No new c/o, Coverage by Dr Mcgill and Papa appreciated in my absence S/P resection of Right colon tumor/large polypoid mass. Pathology still pending Objective - Vital Signs/Intake and Output Vital Signs (last 24 hours): Temp Pulse Resp BP Pulse Ox 97.6 F 108 H 16 160/91 H 97 11/25/17 08:00 11/25/17 08:00 11/25/17 08:00 11/25/17 08:00 11/25/17 08:00 Intake and Output: 11/25/17 11/25/17 06:59 18:59 Intake Total 1300 Output Total 1030 Balance 270 - Medications Medications: Current Medications Aspirin (Aspirin Chewable) 81 mg PO DAILY [facility] Last Admin: 11/24/17 10:00 Dose: Not Given Diltiazem HCl (Cardizem Cd) 180 mg PO DAILY [facility] Last Admin: 11/24/17 10:00 Dose: Not Given Docusate Sodium (Colace) 100 mg PO DAILY [facility] Last Admin: 11/24/17 10:00 Dose: Not Given Famotidine (Pepcid) 20 mg PO DAILY [facility] Last Admin: 11/24/17 10:00 Dose: Not Given Heparin Sodium (Porcine) (Heparin) 5,000 units SC Q8 [facility] Last Admin: 11/25/17 05:11 Dose: 5,000 units Hydromorphone HCl (Dilaudid) 0.5 mg IVP Q4H PRN PRN Reason: Pain, severe (8-10) Last Admin: 11/25/17 04:38 Dose: 0.5 mg Potassium Chloride (Potassium Chloride 10 Meq/100 Ml) 10 meq in 100 mls @ 100 mls/hr IVPB Q1H [facility] Stop: 11/25/17 11:59 Last Admin: 11/25/17 09:08 Dose: 100 mls/hr Ketorolac Tromethamine (Toradol) 10 mg PO Q6 PRN PRN Reason: Pain, Mild (1-3) Lactic Acid (Lac-Hydrin 12% Lotion (225 G)) 0 gm EXT TID [facility] Last Admin: 11/24/17 17:02 Dose: 1 applic Metoprolol Tartrate (Lopressor) 5 mg IVP Q8 PRN PRN Reason: Heart rate Metoprolol Tartrate (Lopressor) 50 mg PO BID [facility] Last Admin: 11/24/17 17:02 Dose: Not Given Ondansetron HCl (Zofran Inj) 4 mg IVP Q6H PRN PRN Reason: Nausea/Vomiting Last Admin: 11/23/17 21:45 Dose: 4 mg Potassium Chloride (K-Dur 20 Meq Er Tab) 20 meq PO DAILY [facility] Last Admin: 11/24/17 10:00 Dose: Not Given Simethicone (Mylicon Chew Tab) 80 mg PO Q6 PRN PRN Reason: GI distress Last Admin: 11/22/17 13:13 Dose: 80 mg Tramadol HCl (Ultram) 50 mg PO TID PRN PRN Reason: Pain, moderate (4-7) Last Admin: 11/22/17 17:56 Dose: 50 mg - Labs Labs: 11/25/17 06:12 11/25/17 06:12 - Constitutional Appears: No Acute Distress - Respiratory Exam Respiratory Exam: NORMAL BREATHING PATTERN - Cardiovascular Exam Cardiovascular Exam: Tachycardia, REGULAR RHYTHM - GI/Abdominal Exam GI & Abdominal Exam: Soft, Diminished Bowel Sounds. absent: Tenderness Additional comments: surgical incision healing well, no drainage - Extremities Exam Extremities Exam: Normal Inspection Assessment and Plan (1) Colonic mass Assessment & Plan: S/P resection POD #5. Post op care as per surgery. Awaiting surgical pathology for further recommendations. If malignant patient is not going to consider CTX due to age and lack of desire for ANY medical care prior to now. Status: Acute (2) Constipation Assessment & Plan: LIkely not due to tumor due to location of lesions. Will resume stool softeners and fiber as out patient Status: Acute (3) Weight loss Assessment & Plan: Awaiting surgical pathology Status: Acute (4) Atrial fibrillation Assessment & Plan: as per cardiology. Seems to be in NSR at present. Status: Acute
[2017-11-25] MEDS: diltiaZEM 180 mg/24 Hours CD Cap PO SCH (09:49)
[2017-11-25] MEDS: Ammonium Lactate 12% Lotion (225 g) EXT SCH ×3 (09:50→18:17)
[2017-11-25] MEDS: Potassium Chloride 20 mEq ER Tab PO SCH (11:34)
--- NOTE | 2017-11-25 14:53 | CP.PCM.PN ---
Subjective - Date & Time of Evaluation Date of Evaluation: 11/25/17 Time of Evaluation: 14:51 - Subjective Subjective: Surgery pt s &e. C/O pain. Resting. Denies BM. no flatus. Denies F/C/N/V/D/CP/ SOB. using IS. minimal ambulation Objective - Vital Signs/Intake and Output Vital Signs (last 24 hours): Temp Pulse Resp BP Pulse Ox 97.6 F 90 18 143/78 96 11/25/17 12:00 11/25/17 12:00 11/25/17 12:00 11/25/17 12:00 11/25/17 12:00 Intake and Output: 11/25/17 11/25/17 06:59 18:59 Intake Total 1300 100 Output Total 1030 100 Balance 270 0 - Medications Medications: Current Medications Aspirin (Aspirin Chewable) 81 mg PO DAILY [facility] Last Admin: 11/25/17 09:49 Dose: 81 mg Diltiazem HCl (Cardizem Cd) 180 mg PO DAILY [facility] Last Admin: 11/25/17 09:49 Dose: 180 mg Docusate Sodium (Colace) 100 mg PO DAILY [facility] Last Admin: 11/25/17 09:51 Dose: Not Given Famotidine (Pepcid) 20 mg PO DAILY [facility] Last Admin: 11/25/17 09:49 Dose: 20 mg Heparin Sodium (Porcine) (Heparin) 5,000 units SC Q8 [facility] Last Admin: 11/25/17 13:52 Dose: 5,000 units Hydromorphone HCl (Dilaudid) 0.5 mg IVP Q4H PRN PRN Reason: Pain, severe (8-10) Last Admin: 11/25/17 11:53 Dose: 0.5 mg Ketorolac Tromethamine (Toradol) 10 mg PO Q6 PRN PRN Reason: Pain, Mild (1-3) Lactic Acid (Lac-Hydrin 12% Lotion (225 G)) 0 gm EXT TID [facility] Last Admin: 11/25/17 13:53 Dose: Not Given Metoprolol Tartrate (Lopressor) 5 mg IVP Q8 PRN PRN Reason: Heart rate Metoprolol Tartrate (Lopressor) 50 mg PO BID [facility] Last Admin: 11/25/17 09:49 Dose: 50 mg Ondansetron HCl (Zofran Inj) 4 mg IVP Q6H PRN PRN Reason: Nausea/Vomiting Last Admin: 11/23/17 21:45 Dose: 4 mg Potassium Chloride (K-Dur 20 Meq Er Tab) 20 meq PO DAILY [facility] Last Admin: 11/25/17 11:34 Dose: Not Given Simethicone (Mylicon Chew Tab) 80 mg PO Q6 PRN PRN Reason: GI distress Last Admin: 11/22/17 13:13 Dose: 80 mg Tramadol HCl (Ultram) 50 mg PO TID PRN PRN Reason: Pain, moderate (4-7) Last Admin: 11/22/17 17:56 Dose: 50 mg - Labs Labs: 11/25/17 06:12 11/25/17 06:12 - Constitutional Appears: No Acute Distress - Head Exam Head Exam: ATRAUMATIC, NORMAL INSPECTION, NORMOCEPHALIC - Eye Exam Eye Exam: EOMI, Normal appearance, PERRL Pupil Exam: NORMAL ACCOMODATION, PERRL - ENT Exam ENT Exam: Mucous Membranes Moist, Normal Exam - Neck Exam Neck Exam: Full ROM, Normal Inspection. absent: Lymphadenopathy - Respiratory Exam Respiratory Exam: Clear to Ausculation Bilateral, NORMAL BREATHING PATTERN - Cardiovascular Exam Cardiovascular Exam: REGULAR RHYTHM, +S1, +S2. absent: Murmur - GI/Abdominal Exam GI & Abdominal Exam: Soft, Tenderness, Normal Bowel Sounds. absent: Distended, Firm, Guarding, Rigid - Extremities Exam Extremities Exam: Normal Inspection - Back Exam Back Exam: NORMAL INSPECTION - Neurological Exam Neurological Exam: Alert, Awake, CN II-XII Intact, Normal Gait, Oriented x3 - Psychiatric Exam Psychiatric exam: Normal Affect, Normal Mood - Skin Skin Exam: Dry, Intact, Normal Color, Warm Assessment and Plan - Assessment and Plan (Free Text) Assessment: 82 y/o F POD#5 s/p R elyse colectomy w/ urinary retention and ileus NGT 1000/ billious output Drain 200cc Strong 1300cc - monitor UOP - Monitor NGT/strong/drain output: NG clamped. Possible DC later - IVF - cont pain management - encourage OOB to chair/Amb/IS use - aggressive physical therapy - GI/DVT PPx Pt discussed w/ Dr. Hughes
--- NOTE | 2017-11-25 15:43 | CP.PCM.PN ---
Subjective - Date & Time of Evaluation Date of Evaluation: 11/25/17 Time of Evaluation: 15:28 - Subjective Subjective: poor appetite. Low k and mg, being replaced. Has abdominal pain Objective - Vital Signs/Intake and Output Vital Signs (last 24 hours): Temp Pulse Resp BP Pulse Ox 97.6 F 90 18 143/78 96 11/25/17 12:00 11/25/17 12:00 11/25/17 12:00 11/25/17 12:00 11/25/17 12:00 Intake and Output: 11/25/17 11/25/17 06:59 18:59 Intake Total 1300 350 Output Total 1030 180 Balance 270 170 - Medications Medications: Current Medications Aspirin (Aspirin Chewable) 81 mg PO DAILY [facility] Last Admin: 11/25/17 09:49 Dose: 81 mg Diltiazem HCl (Cardizem Cd) 180 mg PO DAILY [facility] Last Admin: 11/25/17 09:49 Dose: 180 mg Docusate Sodium (Colace) 100 mg PO DAILY [facility] Last Admin: 11/25/17 09:51 Dose: Not Given Famotidine (Pepcid) 20 mg PO DAILY [facility] Last Admin: 11/25/17 09:49 Dose: 20 mg Heparin Sodium (Porcine) (Heparin) 5,000 units SC Q8 [facility] Last Admin: 11/25/17 13:52 Dose: 5,000 units Hydromorphone HCl (Dilaudid) 0.5 mg IVP Q4H PRN PRN Reason: Pain, severe (8-10) Last Admin: 11/25/17 11:53 Dose: 0.5 mg Ketorolac Tromethamine (Toradol) 10 mg PO Q6 PRN PRN Reason: Pain, Mild (1-3) Lactic Acid (Lac-Hydrin 12% Lotion (225 G)) 0 gm EXT TID [facility] Last Admin: 11/25/17 13:53 Dose: Not Given Metoprolol Tartrate (Lopressor) 5 mg IVP Q8 PRN PRN Reason: Heart rate Metoprolol Tartrate (Lopressor) 50 mg PO BID [facility] Last Admin: 11/25/17 09:49 Dose: 50 mg Ondansetron HCl (Zofran Inj) 4 mg IVP Q6H PRN PRN Reason: Nausea/Vomiting Last Admin: 11/23/17 21:45 Dose: 4 mg Potassium Chloride (K-Dur 20 Meq Er Tab) 20 meq PO DAILY [facility] Last Admin: 11/25/17 11:34 Dose: Not Given Simethicone (Mylicon Chew Tab) 80 mg PO Q6 PRN PRN Reason: GI distress Last Admin: 11/22/17 13:13 Dose: 80 mg Tramadol HCl (Ultram) 50 mg PO TID PRN PRN Reason: Pain, moderate (4-7) Last Admin: 11/22/17 17:56 Dose: 50 mg - Labs Labs: 11/25/17 06:12 11/25/17 06:12 - Constitutional Appears: Cachectic - Head Exam Head Exam: ATRAUMATIC - Eye Exam Eye Exam: EOMI - ENT Exam ENT Exam: Mucous Membranes Dry - Respiratory Exam Respiratory Exam: Clear to Ausculation Bilateral - Cardiovascular Exam Cardiovascular Exam: Irregular Rhythm - GI/Abdominal Exam GI & Abdominal Exam: Hypoactive Bowel Sounds - Exam External exam: NORMAL EXTERNAL EXAM Assessment and Plan - Assessment and Plan (Free Text) Assessment: 1. CAD is stable. 2. No signs of chf 3. Afib rate currently 80-90's. 4. It pt is out of bleeding risk window from recent surgery, would consider increasing heparin or change to higher dose lovenox for cva prevention. 5. HTN. add rosa inhibitor 6. Will start higher dose lovenox for afib cva prevention. Will not start oral anticoagulation now due to poor po intake. Which onal anti coagulant to use needs to be addressed prior to d/c.
[2017-11-25] MEDS: Magnesium Sulfate 1 gm in D5W 1 GM/100 ML BAG IVPB SCH ×2 (16:09→16:34)
[2017-11-25] MEDS ORDERED: Potassium Phosphate 30 MMOLE in Sodium Chloride 0.9% 250 ML IVPB SCH (19:00)
[2017-11-25 21:28] LABS: ALBUMIN 2.6 g/dL (3.5-5.0); ALT/SGPT 25 U/L (9-52); AST/SGOT 24 U/L (14-36); BLOOD UREA NITROGEN 9 mg/dL (7-17); CALCIUM 7.4 mg/dl (8.6-10.4); GFR AFRICAN-AMERICAN > 60; GFR NON-AFRICAN AMERICAN > 60; MAGNESIUM 1.9 mg/dL (1.6-2.3)
[2017-11-25] MEDS: Enoxaparin 60 mg Syringe SC SCH ×2 (22:00→22:01)
[2017-11-25] MEDS ORDERED: Sodium Chloride 0.9% 1,000 ML IV SCH (22:30)
[2017-11-25] MEDS ORDERED: Potassium Phosphate 30 MMOLE in Sodium Chloride 0.9% 250 ML IVPB ONE (23:15)
[2017-11-26 08:27] LABS: BLOOD UREA NITROGEN 9 mg/dL (7-17); GFR AFRICAN-AMERICAN > 60; GFR NON-AFRICAN AMERICAN > 60; MAGNESIUM 1.7 mg/dL (1.6-2.3)
--- NOTE | 2017-11-26 08:37 | CP.PCM.PN ---
Subjective - Date & Time of Evaluation Date of Evaluation: 11/26/17 Time of Evaluation: 07:00 - Subjective Subjective: Surgical Progress Note: Patient was seen and examined at bedside in the AM. Patient states she was able to get out of bed yesterday and today she will try to walk. She states she has been using the spirometer. She also states she would like to eat normal food. She denies nausea, vomiting, or fever. Objective - Vital Signs/Intake and Output Vital Signs (last 24 hours): Temp Pulse Resp BP Pulse Ox 98.2 F 66 20 113/55 L 97 11/25/17 23:30 11/25/17 23:30 11/25/17 23:30 11/25/17 23:30 11/25/17 23:30 Intake and Output: 11/26/17 11/26/17 06:59 18:59 Intake Total 965 Output Total 785 Balance 180 - Medications Medications: Current Medications Aspirin (Aspirin Chewable) 81 mg PO DAILY [facility] Last Admin: 11/25/17 09:49 Dose: 81 mg Diltiazem HCl (Cardizem Cd) 180 mg PO DAILY [facility] Last Admin: 11/25/17 09:49 Dose: 180 mg Docusate Sodium (Colace) 100 mg PO DAILY [facility] Last Admin: 11/25/17 09:51 Dose: Not Given Enoxaparin Sodium (Lovenox) 50 mg SC Q12 [facility] Last Admin: 11/25/17 22:01 Dose: Not Given Famotidine (Pepcid) 20 mg PO DAILY [facility] Last Admin: 11/25/17 09:49 Dose: 20 mg Hydralazine HCl (Apresoline) 50 mg PO BID [facility] Last Admin: 11/25/17 18:13 Dose: 50 mg Hydromorphone HCl (Dilaudid) 0.5 mg IVP Q4H PRN PRN Reason: Pain, severe (8-10) Last Admin: 11/25/17 19:28 Dose: 0.5 mg Sodium Chloride (Sodium Chloride 0.9%) 1,000 mls @ 100 mls/hr IV .Q10H [facility] Last Admin: 11/25/17 22:44 Dose: 100 mls/hr Ketorolac Tromethamine (Toradol) 10 mg PO Q6 PRN PRN Reason: Pain, Mild (1-3) Lactic Acid (Lac-Hydrin 12% Lotion (225 G)) 0 gm EXT TID [facility] Last Admin: 11/25/17 18:17 Dose: Not Given Metoprolol Tartrate (Lopressor) 5 mg IVP Q8 PRN PRN Reason: Heart rate Metoprolol Tartrate (Lopressor) 50 mg PO BID [facility] Last Admin: 11/25/17 18:13 Dose: 50 mg Ondansetron HCl (Zofran Inj) 4 mg IVP Q6H PRN PRN Reason: Nausea/Vomiting Last Admin: 11/23/17 21:45 Dose: 4 mg Potassium Chloride (K-Dur 20 Meq Er Tab) 20 meq PO DAILY [facility] Last Admin: 11/25/17 11:34 Dose: Not Given Simethicone (Mylicon Chew Tab) 80 mg PO Q6 PRN PRN Reason: GI distress Last Admin: 11/22/17 13:13 Dose: 80 mg Tramadol HCl (Ultram) 50 mg PO TID PRN PRN Reason: Pain, moderate (4-7) Last Admin: 11/22/17 17:56 Dose: 50 mg - Labs Labs: 11/25/17 06:12 11/25/17 21:10 - Constitutional Appears: No Acute Distress - Head Exam Head Exam: ATRAUMATIC, NORMAL INSPECTION - Eye Exam Eye Exam: Normal appearance - ENT Exam ENT Exam: Mucous Membranes Moist - Respiratory Exam Respiratory Exam: NORMAL BREATHING PATTERN - Cardiovascular Exam Cardiovascular Exam: REGULAR RHYTHM, +S1, +S2 - GI/Abdominal Exam GI & Abdominal Exam: Soft, Tenderness, Normal Bowel Sounds. absent: Distended, Firm, Guarding - Extremities Exam Extremities Exam: Normal Inspection - Neurological Exam Neurological Exam: Alert, Awake, Oriented x3 - Skin Skin Exam: Normal Color, Warm Assessment and Plan - Assessment and Plan (Free Text) Assessment: 82 y/o F POD#5 s/p R elyse colectomy w/ urinary retention and ileus Drain 220cc - D/C strong - Monitor drain output - d/c IVF - cont pain management - encourage OOB to chair/Amb/IS use - aggressive physical therapy - Regular Diet - GI/DVT PPx Alyssa Kim PGY-1
--- NOTE | 2017-11-26 10:02 | CP.PCM.PN ---
Subjective - Date & Time of Evaluation Date of Evaluation: 11/26/17 Time of Evaluation: 10:00 - Subjective Subjective: Out of bed yesterday. Wants to eat solid food. +flatus reported Objective - Vital Signs/Intake and Output Vital Signs (last 24 hours): Temp Pulse Resp BP Pulse Ox 98.3 F 89 20 144/79 97 11/26/17 07:10 11/26/17 07:10 11/26/17 07:10 11/26/17 07:10 11/26/17 07:10 Intake and Output: 11/26/17 11/26/17 06:59 18:59 Intake Total 965 Output Total 785 Balance 180 - Medications Medications: Current Medications Aspirin (Aspirin Chewable) 81 mg PO DAILY [facility] Last Admin: 11/25/17 09:49 Dose: 81 mg Diltiazem HCl (Cardizem Cd) 180 mg PO DAILY [facility] Last Admin: 11/25/17 09:49 Dose: 180 mg Docusate Sodium (Colace) 100 mg PO DAILY [facility] Last Admin: 11/25/17 09:51 Dose: Not Given Enoxaparin Sodium (Lovenox) 50 mg SC Q12 [facility] Last Admin: 11/25/17 22:01 Dose: Not Given Famotidine (Pepcid) 20 mg PO DAILY [facility] Last Admin: 11/25/17 09:49 Dose: 20 mg Hydralazine HCl (Apresoline) 50 mg PO BID [facility] Last Admin: 11/25/17 18:13 Dose: 50 mg Hydromorphone HCl (Dilaudid) 0.5 mg IVP Q4H PRN PRN Reason: Pain, severe (8-10) Last Admin: 11/25/17 19:28 Dose: 0.5 mg Ketorolac Tromethamine (Toradol) 10 mg PO Q6 PRN PRN Reason: Pain, Mild (1-3) Lactic Acid (Lac-Hydrin 12% Lotion (225 G)) 0 gm EXT TID [facility] Last Admin: 11/25/17 18:17 Dose: Not Given Metoprolol Tartrate (Lopressor) 5 mg IVP Q8 PRN PRN Reason: Heart rate Metoprolol Tartrate (Lopressor) 50 mg PO BID [facility] Last Admin: 11/25/17 18:13 Dose: 50 mg Ondansetron HCl (Zofran Inj) 4 mg IVP Q6H PRN PRN Reason: Nausea/Vomiting Last Admin: 11/23/17 21:45 Dose: 4 mg Potassium Chloride (K-Dur 20 Meq Er Tab) 20 meq PO DAILY [facility] Last Admin: 11/25/17 11:34 Dose: Not Given Simethicone (Mylicon Chew Tab) 80 mg PO Q6 PRN PRN Reason: GI distress Last Admin: 11/22/17 13:13 Dose: 80 mg Tramadol HCl (Ultram) 50 mg PO TID PRN PRN Reason: Pain, moderate (4-7) Last Admin: 11/22/17 17:56 Dose: 50 mg - Labs Labs: 11/25/17 06:12 11/26/17 07:22 - Constitutional Appears: No Acute Distress - Head Exam Head Exam: ATRAUMATIC, NORMOCEPHALIC - Respiratory Exam Respiratory Exam: NORMAL BREATHING PATTERN - Cardiovascular Exam Cardiovascular Exam: REGULAR RHYTHM - GI/Abdominal Exam GI & Abdominal Exam: Soft, Normal Bowel Sounds. absent: Tenderness Additional comments: incision healing well, clean and dry. - Back Exam Back Exam: NORMAL INSPECTION Assessment and Plan (1) Colonic mass Assessment & Plan: Awaiting surgical pathology Post op day 6 per surgical team Status: Acute (2) Constipation Status: Acute (3) Weight loss Status: Acute (4) Atrial fibrillation Status: Acute
[2017-11-26] MEDS: Potassium Chloride 20 mEq ER Tab PO SCH (10:09)
[2017-11-26] MEDS: diltiaZEM 180 mg/24 Hours CD Cap PO SCH (10:09)
[2017-11-26] MEDS: Enoxaparin 60 mg Syringe SC SCH ×3 (10:10→22:01)
[2017-11-26] MEDS: Ammonium Lactate 12% Lotion (225 g) EXT SCH ×4 (10:21→22:01)
--- NOTE | 2017-11-26 16:04 | CARD ---
APPROVED REPORT EKG Measurement Heart [id number] <Conclusion> Atrial fibrillation Abnormal ECG
[2017-11-27] MEDS: Sodium Chloride 0.9% 1,000 ML IV SCH ×2 (04:00→18:08)
--- NOTE | 2017-11-27 09:02 | CP.PCM.PN ---
Subjective - Date & Time of Evaluation Date of Evaluation: 11/27/17 Time of Evaluation: 07:00 - Subjective Subjective: Surgical Progress Note: Patient was seen and examined at bedside in the AM. Patient states she has abdominal pain today. She states she feels nauseated and vomited once. Objective - Vital Signs/Intake and Output Vital Signs (last 24 hours): Temp Pulse Resp BP Pulse Ox 98 F 101 H 18 155/82 H 100 11/27/17 08:46 11/27/17 08:46 11/27/17 08:46 11/27/17 08:46 11/27/17 08:46 Intake and Output: 11/27/17 11/27/17 06:59 18:59 Intake Total 810 Output Total 540 Balance 270 - Medications Medications: Current Medications Aspirin (Aspirin Chewable) 81 mg PO DAILY [facility] Last Admin: 11/26/17 10:09 Dose: 81 mg Diltiazem HCl (Cardizem Cd) 180 mg PO DAILY [facility] Last Admin: 11/26/17 10:09 Dose: 180 mg Docusate Sodium (Colace) 100 mg PO DAILY [facility] Last Admin: 11/26/17 10:10 Dose: 100 mg Enoxaparin Sodium (Lovenox) 50 mg SC Q12 [facility] Last Admin: 11/26/17 22:01 Dose: Not Given Famotidine (Pepcid) 20 mg PO DAILY [facility] Last Admin: 11/26/17 10:09 Dose: 20 mg Hydralazine HCl (Apresoline) 50 mg PO BID [facility] Last Admin: 11/26/17 18:17 Dose: 50 mg Hydromorphone HCl (Dilaudid) 0.5 mg IVP Q4H PRN PRN Reason: Pain, severe (8-10) Last Admin: 11/26/17 16:00 Dose: 0.5 mg Sodium Chloride (Sodium Chloride 0.9%) 1,000 mls @ 70 mls/hr IV .[id number] [facility] Last Admin: 11/27/17 04:00 Dose: 70 mls/hr Ketorolac Tromethamine (Toradol) 10 mg PO Q6 PRN PRN Reason: Pain, Mild (1-3) Lactic Acid (Lac-Hydrin 12% Lotion (225 G)) 0 gm EXT TID [facility] Last Admin: 01/10/18 22:01 Dose: 1 applic Metoclopramide HCl (Reglan) 10 mg IVP DAILY@ONCE PRN PRN Reason: Nausea/Vomiting Metoprolol Tartrate (Lopressor) 5 mg IVP Q8 PRN PRN Reason: Heart rate Last Admin: 11/26/17 10:09 Dose: 5 mg Metoprolol Tartrate (Lopressor) 50 mg PO BID [facility] Last Admin: 11/26/17 18:17 Dose: 50 mg Ondansetron HCl (Zofran Inj) 4 mg IVP Q6H PRN PRN Reason: Nausea/Vomiting Last Admin: 11/26/17 22:11 Dose: 4 mg Potassium Chloride (K-Dur 20 Meq Er Tab) 20 meq PO DAILY [facility] Last Admin: 11/26/17 10:09 Dose: 20 meq Simethicone (Mylicon Chew Tab) 80 mg PO Q6 PRN PRN Reason: GI distress Last Admin: 11/22/17 13:13 Dose: 80 mg Tramadol HCl (Ultram) 50 mg PO TID PRN PRN Reason: Pain, moderate (4-7) Last Admin: 11/22/17 17:56 Dose: 50 mg - Labs Labs: 11/25/17 06:12 11/26/17 07:22 - Constitutional Appears: In Acute Distress - Head Exam Head Exam: ATRAUMATIC, NORMAL INSPECTION - Eye Exam Eye Exam: EOMI, Normal appearance - ENT Exam ENT Exam: Mucous Membranes Moist - Respiratory Exam Respiratory Exam: NORMAL BREATHING PATTERN - Cardiovascular Exam Cardiovascular Exam: +S1, +S2 - GI/Abdominal Exam GI & Abdominal Exam: Soft, Tenderness, Normal Bowel Sounds - Extremities Exam Extremities Exam: Normal Inspection - Neurological Exam Neurological Exam: Alert, Awake, Oriented x3 - Psychiatric Exam Psychiatric exam: Normal Affect, Normal Mood - Skin Skin Exam: Dry, Intact, Normal Color, Warm Assessment and Plan - Assessment and Plan (Free Text) Assessment: 82 y/o F POD#5 s/p R elyse colectomy w/ urinary retention and ileus Drain 335cc - Monitor drain output - Cont pain management - encourage OOB to chair/Amb/IS use - aggressive physical therapy - Regular Diet - Zofran PRN - GI/DVT PPx Alyssa Kim PGY-1
[2017-11-27] MEDS: Enoxaparin 60 mg Syringe SC SCH ×3 (09:45→22:31)
[2017-11-27] MEDS: Potassium Chloride 20 mEq ER Tab PO SCH (09:45)
[2017-11-27] MEDS: diltiaZEM 180 mg/24 Hours CD Cap PO SCH (09:45)
[2017-11-27] MEDS: Ammonium Lactate 12% Lotion (225 g) EXT SCH ×3 (09:48→18:38)
--- NOTE | 2017-11-27 10:44 | CP.PCM.PN ---
Subjective - Date & Time of Evaluation Date of Evaluation: 11/27/17 Time of Evaluation: 10:41 - Subjective Subjective: Patient with two episodes of bilious vomiting today. No bowel movement. Objective - Vital Signs/Intake and Output Vital Signs (last 24 hours): Temp Pulse Resp BP Pulse Ox 98 F 101 H 18 155/82 H 100 11/27/17 08:46 11/27/17 08:46 11/27/17 08:46 11/27/17 08:46 11/27/17 08:46 Intake and Output: 11/27/17 11/27/17 06:59 18:59 Intake Total 810 Output Total 540 280 Balance 270 -280 - Medications Medications: Current Medications Aspirin (Aspirin Chewable) 81 mg PO DAILY [facility] Last Admin: 11/27/17 09:46 Dose: 81 mg Diltiazem HCl (Cardizem Cd) 180 mg PO DAILY [facility] Last Admin: 11/27/17 09:45 Dose: 180 mg Docusate Sodium (Colace) 100 mg PO DAILY [facility] Last Admin: 11/27/17 09:46 Dose: 100 mg Enoxaparin Sodium (Lovenox) 50 mg SC Q12 [facility] Last Admin: 11/27/17 09:57 Dose: Not Given Famotidine (Pepcid) 20 mg PO DAILY [facility] Last Admin: 11/27/17 09:46 Dose: 20 mg Hydralazine HCl (Apresoline) 50 mg PO BID [facility] Last Admin: 11/27/17 09:45 Dose: 50 mg Hydromorphone HCl (Dilaudid) 0.5 mg IVP Q4H PRN PRN Reason: Pain, severe (8-10) Last Admin: 11/26/17 16:00 Dose: 0.5 mg Sodium Chloride (Sodium Chloride 0.9%) 1,000 mls @ 70 mls/hr IV .[id number] [facility] Last Admin: 11/27/17 04:00 Dose: 70 mls/hr Ketorolac Tromethamine (Toradol) 10 mg PO Q6 PRN PRN Reason: Pain, Mild (1-3) Lactic Acid (Lac-Hydrin 12% Lotion (225 G)) 0 gm EXT TID [facility] Last Admin: 11/27/17 09:48 Dose: Not Given Metoclopramide HCl (Reglan) 10 mg IVP ACHS [facility] Metoprolol Tartrate (Lopressor) 5 mg IVP Q8 PRN PRN Reason: Heart rate Last Admin: 11/26/17 10:09 Dose: 5 mg Metoprolol Tartrate (Lopressor) 50 mg PO BID [facility] Last Admin: 11/27/17 10:22 Dose: 50 mg Ondansetron HCl (Zofran Inj) 4 mg IVP Q6H PRN PRN Reason: Nausea/Vomiting Last Admin: 11/26/17 22:11 Dose: 4 mg Potassium Chloride (K-Dur 20 Meq Er Tab) 20 meq PO DAILY [facility] Last Admin: 11/27/17 09:45 Dose: 20 meq Simethicone (Mylicon Chew Tab) 80 mg PO Q6 PRN PRN Reason: GI distress Last Admin: 11/22/17 13:13 Dose: 80 mg Tramadol HCl (Ultram) 50 mg PO TID PRN PRN Reason: Pain, moderate (4-7) Last Admin: 11/22/17 17:56 Dose: 50 mg - Labs Labs: 11/25/17 06:12 11/26/17 07:22 - Constitutional Appears: No Acute Distress - Head Exam Head Exam: ATRAUMATIC, NORMOCEPHALIC - Respiratory Exam Respiratory Exam: NORMAL BREATHING PATTERN - Cardiovascular Exam Cardiovascular Exam: REGULAR RHYTHM - GI/Abdominal Exam GI & Abdominal Exam: Soft, Normal Bowel Sounds. absent: Tenderness Additional comments: incision intact - Extremities Exam Extremities Exam: Normal Inspection Assessment and Plan (1) Colonic mass Assessment & Plan: Still awaiting surgical pathology report. POD #7 Status: Acute (2) Constipation Status: Acute (3) Weight loss Status: Acute (4) Atrial fibrillation Status: Acute (5) Ileus following gastrointestinal surgery Assessment & Plan: N/V today may reflect ileus or resumption of consitpation process that was her initial complaint. Right sided mass should not cause constipation. Agree with CT Scan Consider Dulcolax suppository. Status: Acute
[2017-11-27] MEDS: Simethicone 80 mg Chewtab PO PRN (18:09)
[2017-11-28] MEDS: Sodium Chloride 0.9% 1,000 ML IV SCH ×3 (05:18→22:55)
--- NOTE | 2017-11-28 08:33 | CP.PCM.PN ---
Subjective - Date & Time of Evaluation Date of Evaluation: 11/28/17 Time of Evaluation: 07:00 - Subjective Subjective: Surgical Progress Note: Patient was seen and examined at bedside in the AM. Patient states she feels better today. She denies nausea or vomiting. She states she had a bowel movement yesterday after the enema. She states she did ambulate in the hallway with the physical therapist yesterday. Objective - Vital Signs/Intake and Output Vital Signs (last 24 hours): Temp Pulse Resp BP Pulse Ox 97.8 F 101 H 20 119/68 97 11/27/17 23:00 11/28/17 00:00 11/27/17 23:00 11/27/17 23:00 11/27/17 23:30 Intake and Output: 11/28/17 11/28/17 06:59 18:59 Intake Total 1410 Output Total 840 Balance 570 - Medications Medications: Current Medications Aspirin (Aspirin Chewable) 81 mg PO DAILY [facility] Last Admin: 11/27/17 09:46 Dose: 81 mg Diltiazem HCl (Cardizem Cd) 180 mg PO DAILY [facility] Last Admin: 11/27/17 09:45 Dose: 180 mg Docusate Sodium (Colace) 100 mg PO DAILY [facility] Last Admin: 11/27/17 09:46 Dose: 100 mg Enoxaparin Sodium (Lovenox) 50 mg SC Q12 [facility] Last Admin: 11/27/17 22:31 Dose: Not Given Famotidine (Pepcid) 20 mg PO DAILY [facility] Last Admin: 11/27/17 09:46 Dose: 20 mg Hydralazine HCl (Apresoline) 50 mg PO BID [facility] Last Admin: 11/27/17 18:09 Dose: 50 mg Hydromorphone HCl (Dilaudid) 0.5 mg IVP Q4H PRN PRN Reason: Pain, severe (8-10) Last Admin: 11/28/17 05:16 Dose: 0.5 mg Sodium Chloride (Sodium Chloride 0.9%) 1,000 mls @ 70 mls/hr IV .[id number] [facility] Last Admin: 11/28/17 05:18 Dose: 70 mls/hr Ketorolac Tromethamine (Toradol) 10 mg PO Q6 PRN PRN Reason: Pain, Mild (1-3) Lactic Acid (Lac-Hydrin 12% Lotion (225 G)) 0 gm EXT TID [facility] Last Admin: 11/27/17 18:38 Dose: Not Given Metoclopramide HCl (Reglan) 10 mg IVP ACHS [facility] Last Admin: 11/28/17 07:03 Dose: Not Given Metoclopramide HCl (Reglan) 10 mg PO ACHS [facility] Last Admin: 11/28/17 07:06 Dose: 10 mg Metoprolol Tartrate (Lopressor) 5 mg IVP Q8 PRN PRN Reason: Heart rate Last Admin: 11/26/17 10:09 Dose: 5 mg Metoprolol Tartrate (Lopressor) 50 mg PO BID [facility] Last Admin: 11/27/17 18:37 Dose: 50 mg Ondansetron HCl (Zofran Inj) 4 mg IVP Q6H PRN PRN Reason: Nausea/Vomiting Last Admin: 11/26/17 22:11 Dose: 4 mg Potassium Chloride (K-Dur 20 Meq Er Tab) 20 meq PO DAILY [facility] Last Admin: 11/27/17 09:45 Dose: 20 meq Simethicone (Mylicon Chew Tab) 80 mg PO Q6 PRN PRN Reason: GI distress Last Admin: 11/27/17 18:09 Dose: 80 mg Tramadol HCl (Ultram) 50 mg PO TID PRN PRN Reason: Pain, moderate (4-7) Last Admin: 11/22/17 17:56 Dose: 50 mg - Labs Labs: 11/25/17 06:12 11/26/17 07:22 - Constitutional Appears: No Acute Distress - Head Exam Head Exam: ATRAUMATIC, NORMAL INSPECTION - Eye Exam Eye Exam: EOMI, Normal appearance - ENT Exam ENT Exam: Mucous Membranes Moist - Respiratory Exam Respiratory Exam: NORMAL BREATHING PATTERN - GI/Abdominal Exam GI & Abdominal Exam: Soft, Tenderness, Normal Bowel Sounds - Extremities Exam Extremities Exam: Normal Inspection - Neurological Exam Neurological Exam: Alert, Awake, Oriented x3 - Psychiatric Exam Psychiatric exam: Normal Affect, Normal Mood - Skin Skin Exam: Dry, Intact, Normal Color, Warm Assessment and Plan - Assessment and Plan (Free Text) Assessment: 82 y/o F POD#9 s/p R elyse colectomy w/ urinary retention and ileus Drain 340cc - Monitor drain output - Cont pain management - encourage OOB to chair/Amb/IS use - aggressive physical therapy - Soft Diet - Zofran PRN - GI/DVT PPx Alyssa Kim PGY-1
[2017-11-28] MEDS: diltiaZEM 180 mg/24 Hours CD Cap PO SCH (10:40)
[2017-11-28] MEDS: Potassium Chloride 20 mEq ER Tab PO SCH (10:40)
[2017-11-28] MEDS: Enoxaparin 60 mg Syringe SC SCH ×2 (10:40→22:54)
[2017-11-28] MEDS: Ammonium Lactate 12% Lotion (225 g) EXT SCH ×3 (10:41→18:45)
[2017-11-29] MEDS: Ammonium Lactate 12% Lotion (225 g) EXT SCH ×3 (10:22→17:45)
[2017-11-29] MEDS: diltiaZEM 180 mg/24 Hours CD Cap PO SCH (10:22)
[2017-11-29] MEDS: Potassium Chloride 20 mEq ER Tab PO SCH (10:22)
[2017-11-29] MEDS: Enoxaparin 60 mg Syringe SC SCH ×2 (10:23→21:26)
[2017-11-29] MEDS ORDERED: Magnesium Hydroxide Susp 30 ml UD PO ONE (10:52)
--- NOTE | 2017-11-29 10:52 | CP.PCM.PN ---
Subjective - Date & Time of Evaluation Date of Evaluation: 11/29/17 Time of Evaluation: 10:50 - Subjective Subjective: clinically improved but refusing multiple meds po diet advanced wants pizza master pizza various labs noted Objective - Vital Signs/Intake and Output Vital Signs (last 24 hours): Temp Pulse Resp BP Pulse Ox 97.2 F L 106 H 18 165/80 H 100 11/29/17 09:09 11/29/17 09:09 11/29/17 09:09 11/29/17 09:09 11/29/17 09:09 Intake and Output: 11/29/17 11/29/17 06:59 18:59 Intake Total 1378 Output Total 710 Balance 668 - Medications Medications: Current Medications Aspirin (Aspirin Chewable) 81 mg PO DAILY [facility] Last Admin: 11/29/17 10:22 Dose: 81 mg Diltiazem HCl (Cardizem Cd) 180 mg PO DAILY [facility] Last Admin: 11/29/17 10:22 Dose: 180 mg Docusate Sodium (Colace) 100 mg PO DAILY [facility] Last Admin: 11/29/17 10:40 Dose: Not Given Enoxaparin Sodium (Lovenox) 50 mg SC Q12 [facility] Last Admin: 11/29/17 10:23 Dose: 50 mg Famotidine (Pepcid) 20 mg PO DAILY [facility] Last Admin: 11/29/17 10:24 Dose: 20 mg Hydromorphone HCl (Dilaudid) 0.5 mg IVP Q4H PRN PRN Reason: Pain, severe (8-10) Last Admin: 11/28/17 05:16 Dose: 0.5 mg Ketorolac Tromethamine (Toradol) 10 mg PO Q6 PRN PRN Reason: Pain, Mild (1-3) Lactic Acid (Lac-Hydrin 12% Lotion (225 G)) 0 gm EXT TID [facility] Last Admin: 11/29/17 10:22 Dose: 1 applic Metoclopramide HCl (Reglan) 10 mg PO ACHS [facility] Last Admin: 11/29/17 06:33 Dose: Not Given Metoprolol Tartrate (Lopressor) 5 mg IVP Q8 PRN PRN Reason: Heart rate Last Admin: 11/26/17 10:09 Dose: 5 mg Metoprolol Tartrate (Lopressor) 50 mg PO BID [facility] Last Admin: 11/29/17 10:23 Dose: 50 mg Potassium Chloride (K-Dur 20 Meq Er Tab) 20 meq PO DAILY [facility] Last Admin: 11/29/17 10:22 Dose: 20 meq Tramadol HCl (Ultram) 50 mg PO TID PRN PRN Reason: Pain, moderate (4-7) Last Admin: 11/22/17 17:56 Dose: 50 mg - Labs Labs: 11/25/17 06:12 11/26/17 07:22
--- NOTE | 2017-11-29 11:39 | CP.PCM.PN ---
Subjective - Date & Time of Evaluation Date of Evaluation: 11/29/17 Time of Evaluation: 11:36 - Subjective Subjective: Still no bowel movement per patient Tolerating diet at present, No N/V Objective - Vital Signs/Intake and Output Vital Signs (last 24 hours): Temp Pulse Resp BP Pulse Ox 97.2 F L 106 H 18 165/80 H 100 11/29/17 09:09 11/29/17 09:09 11/29/17 09:09 11/29/17 09:09 11/29/17 09:09 Intake and Output: 11/29/17 11/29/17 06:59 18:59 Intake Total 1378 Output Total 710 Balance 668 - Medications Medications: Current Medications Aspirin (Aspirin Chewable) 81 mg PO DAILY [facility] Last Admin: 11/29/17 10:22 Dose: 81 mg Diltiazem HCl (Cardizem Cd) 180 mg PO DAILY [facility] Last Admin: 11/29/17 10:22 Dose: 180 mg Docusate Sodium (Colace) 100 mg PO DAILY [facility] Last Admin: 11/29/17 10:40 Dose: Not Given Enoxaparin Sodium (Lovenox) 50 mg SC Q12 [facility] Last Admin: 11/29/17 10:23 Dose: 50 mg Famotidine (Pepcid) 20 mg PO DAILY [facility] Last Admin: 11/29/17 10:24 Dose: 20 mg Hydromorphone HCl (Dilaudid) 0.5 mg IVP Q4H PRN PRN Reason: Pain, severe (8-10) Last Admin: 11/28/17 05:16 Dose: 0.5 mg Ketorolac Tromethamine (Toradol) 10 mg PO Q6 PRN PRN Reason: Pain, Mild (1-3) Lactic Acid (Lac-Hydrin 12% Lotion (225 G)) 0 gm EXT TID [facility] Last Admin: 11/29/17 10:22 Dose: 1 applic Metoclopramide HCl (Reglan) 10 mg PO ACHS [facility] Last Admin: 11/29/17 11:21 Dose: Not Given Metoprolol Tartrate (Lopressor) 5 mg IVP Q8 PRN PRN Reason: Heart rate Last Admin: 11/26/17 10:09 Dose: 5 mg Metoprolol Tartrate (Lopressor) 50 mg PO BID [facility] Last Admin: 11/29/17 10:23 Dose: 50 mg Potassium Chloride (K-Dur 20 Meq Er Tab) 20 meq PO DAILY [facility] Last Admin: 11/29/17 10:22 Dose: 20 meq Tramadol HCl (Ultram) 50 mg PO TID PRN PRN Reason: Pain, moderate (4-7) Last Admin: 11/22/17 17:56 Dose: 50 mg - Labs Labs: 11/25/17 06:12 11/26/17 07:22 - Constitutional Appears: No Acute Distress - Head Exam Head Exam: ATRAUMATIC, NORMOCEPHALIC - Respiratory Exam Respiratory Exam: NORMAL BREATHING PATTERN - Cardiovascular Exam Cardiovascular Exam: REGULAR RHYTHM, +S1 - GI/Abdominal Exam GI & Abdominal Exam: Soft, Normal Bowel Sounds. absent: Tenderness Additional comments: Incision healing well - Extremities Exam Extremities Exam: Normal Inspection Assessment and Plan (1) Colonic mass Assessment & Plan: Still awaiting surgical pathology now over one week post=op Status: Acute (2) Constipation Assessment & Plan: Will begin Lactulose bid in absence of obstruction Status: Acute (3) Weight loss Status: Acute (4) Atrial fibrillation Status: Acute (5) Ileus following gastrointestinal surgery Assessment & Plan: as above Status: Acute
--- NOTE | 2017-11-30 09:49 | CP.PCM.PN ---
Subjective - Date & Time of Evaluation Date of Evaluation: 11/30/17 Time of Evaluation: 08:30 - Subjective Subjective: General Surgery Note for Dr. Hughes Patient seen and examined at bedside. No acute event overnight. She is s/p R hemicolectomy with urinary retention and post op ileus POD#11. Patient sitting up in bed eating breakfast. Patient complaining about her constipation but had 2 BM yesterday after milk of magnesia. Denies nausea/vomiting. Patient also states that no one would walk her yesterday and feels slighted. Objective - Vital Signs/Intake and Output Vital Signs (last 24 hours): Temp Pulse Resp BP Pulse Ox 98.0 F 102 H 18 147/77 95 11/30/17 08:40 11/30/17 08:40 11/30/17 08:40 11/30/17 08:40 11/30/17 08:40 Intake and Output: 11/30/17 11/30/17 06:59 18:59 Intake Total 118 Output Total 330 Balance -212 - Medications Medications: Current Medications Aspirin (Aspirin Chewable) 81 mg PO DAILY [facility] Last Admin: 11/29/17 10:22 Dose: 81 mg Diltiazem HCl (Cardizem Cd) 180 mg PO DAILY [facility] Last Admin: 11/29/17 10:22 Dose: 180 mg Docusate Sodium (Colace) 100 mg PO DAILY [facility] Last Admin: 11/29/17 10:40 Dose: Not Given Enoxaparin Sodium (Lovenox) 50 mg SC Q12 [facility] Last Admin: 11/29/17 21:26 Dose: Not Given Famotidine (Pepcid) 20 mg PO DAILY [facility] Last Admin: 11/29/17 10:24 Dose: 20 mg Hydromorphone HCl (Dilaudid) 0.5 mg IVP Q4H PRN PRN Reason: Pain, severe (8-10) Last Admin: 11/28/17 05:16 Dose: 0.5 mg Ketorolac Tromethamine (Toradol) 10 mg PO Q6 PRN PRN Reason: Pain, Mild (1-3) Lactic Acid (Lac-Hydrin 12% Lotion (225 G)) 0 gm EXT TID [facility] Last Admin: 11/29/17 17:45 Dose: Not Given Metoclopramide HCl (Reglan) 10 mg PO ACHS [facility] Last Admin: 11/30/17 06:32 Dose: Not Given Metoprolol Tartrate (Lopressor) 5 mg IVP Q8 PRN PRN Reason: Heart rate Last Admin: 11/26/17 10:09 Dose: 5 mg Metoprolol Tartrate (Lopressor) 50 mg PO BID [facility] Last Admin: 11/29/17 18:45 Dose: Not Given Potassium Chloride (K-Dur 20 Meq Er Tab) 20 meq PO DAILY [facility] Last Admin: 11/29/17 10:22 Dose: 20 meq Tramadol HCl (Ultram) 50 mg PO TID PRN PRN Reason: Pain, moderate (4-7) Last Admin: 11/22/17 17:56 Dose: 50 mg - Labs Labs: 11/25/17 06:12 11/26/17 07:22 - Constitutional Appears: No Acute Distress - Head Exam Head Exam: ATRAUMATIC, NORMOCEPHALIC - Eye Exam Eye Exam: Normal appearance - ENT Exam ENT Exam: Mucous Membranes Moist - Respiratory Exam Respiratory Exam: NORMAL BREATHING PATTERN - Cardiovascular Exam Cardiovascular Exam: REGULAR RHYTHM - GI/Abdominal Exam GI & Abdominal Exam: Soft, Normal Bowel Sounds. absent: Distended, Firm, Guarding, Rigid, Tenderness, Rebound - Extremities Exam Extremities Exam: Normal Capillary Refill - Neurological Exam Neurological Exam: Alert, Awake, CN II-XII Intact, Oriented x3 - Psychiatric Exam Psychiatric exam: Normal Affect, Normal Mood - Skin Skin Exam: Dry, Intact, Normal Color, Warm Assessment and Plan - Assessment and Plan (Free Text) Plan: 82 F s/p R hemicolectomy with urinary retention and post op ileus POD#11 - Encourage OOB to chair/Amb/IS use - PT/OT - Soft Diet - Analgesics/Anti-emetics PRN - GI/DVT PPx - Discussed with Dr. aSul Padilla PGY1
[2017-11-30] MEDS: diltiaZEM 180 mg/24 Hours CD Cap PO SCH (10:44)
[2017-11-30] MEDS: Potassium Chloride 20 mEq ER Tab PO SCH (10:45)
[2017-11-30] MEDS: Ammonium Lactate 12% Lotion (225 g) EXT SCH ×2 (10:45→18:16)
[2017-11-30] MEDS: Enoxaparin 60 mg Syringe SC SCH ×2 (10:47→22:25)
--- NOTE | 2017-11-30 12:51 | CP.PCM.PN ---
Subjective - Date & Time of Evaluation Date of Evaluation: 11/30/17 Time of Evaluation: 12:48 - Subjective Subjective: Had bowel movement yesterday and still with Right sided pain Poor po intake Objective - Vital Signs/Intake and Output Vital Signs (last 24 hours): Temp Pulse Resp BP Pulse Ox 98.0 F 102 H 18 147/77 95 11/30/17 08:40 11/30/17 08:40 11/30/17 08:40 11/30/17 08:40 11/30/17 08:40 Intake and Output: 11/30/17 11/30/17 06:59 18:59 Intake Total 118 Output Total 330 Balance -212 - Medications Medications: Current Medications Aspirin (Aspirin Chewable) 81 mg PO DAILY [facility] Last Admin: 11/30/17 10:44 Dose: Not Given Diltiazem HCl (Cardizem Cd) 180 mg PO DAILY [facility] Last Admin: 11/30/17 10:44 Dose: 180 mg Docusate Sodium (Colace) 100 mg PO DAILY [facility] Last Admin: 11/30/17 12:19 Dose: 100 mg Enoxaparin Sodium (Lovenox) 50 mg SC Q12 [facility] Last Admin: 11/30/17 10:47 Dose: Not Given Famotidine (Pepcid) 20 mg PO DAILY [facility] Last Admin: 11/30/17 10:46 Dose: Not Given Hydromorphone HCl (Dilaudid) 0.5 mg IVP Q4H PRN PRN Reason: Pain, severe (8-10) Last Admin: 11/28/17 05:16 Dose: 0.5 mg Ketorolac Tromethamine (Toradol) 10 mg PO Q6 PRN PRN Reason: Pain, Mild (1-3) Lactic Acid (Lac-Hydrin 12% Lotion (225 G)) 0 gm EXT TID [facility] Last Admin: 11/30/17 10:45 Dose: Not Given Metoclopramide HCl (Reglan) 10 mg PO ACHS [facility] Last Admin: 11/30/17 10:45 Dose: Not Given Metoprolol Tartrate (Lopressor) 5 mg IVP Q8 PRN PRN Reason: Heart rate Last Admin: 11/26/17 10:09 Dose: 5 mg Metoprolol Tartrate (Lopressor) 50 mg PO BID [facility] Last Admin: 11/30/17 10:46 Dose: 50 mg Potassium Chloride (K-Dur 20 Meq Er Tab) 20 meq PO DAILY [facility] Last Admin: 11/30/17 10:45 Dose: Not Given Tramadol HCl (Ultram) 50 mg PO TID PRN PRN Reason: Pain, moderate (4-7) Last Admin: 11/22/17 17:56 Dose: 50 mg - Labs Labs: 11/25/17 06:12 11/26/17 07:22 - Constitutional Appears: No Acute Distress, Cachectic - Head Exam Head Exam: ATRAUMATIC, NORMOCEPHALIC - Eye Exam Eye Exam: EOMI, PERRL - Respiratory Exam Respiratory Exam: NORMAL BREATHING PATTERN - Cardiovascular Exam Cardiovascular Exam: REGULAR RHYTHM - GI/Abdominal Exam GI & Abdominal Exam: Distended, Soft, Normal Bowel Sounds. absent: Tenderness Additional comments: incision healing well - Extremities Exam Extremities Exam: Normal Inspection Assessment and Plan (1) Colonic mass Assessment & Plan: Awaiting surgical path Status: Acute (2) Constipation Assessment & Plan: better with Lactulaose Status: Acute (3) Weight loss Assessment & Plan: For continued physical therapy, strenth and gait training. Consider Subacute Care evaluation. Status: Acute (4) Atrial fibrillation Status: Acute (5) Ileus following gastrointestinal surgery Status: Acute
[2017-12-01 00:54] VITALS: RESP 20
[2017-12-01] MEDS ORDERED: Bisacodyl 5mg EC Tab PO ONE (04:36)
[2017-12-01] MEDS ORDERED: Simethicone 80 mg Chewtab PO ONE (04:36)
[2017-12-01] MEDS: diltiaZEM 180 mg/24 Hours CD Cap PO SCH (09:57)
[2017-12-01] MEDS: Potassium Chloride 20 mEq ER Tab PO SCH (09:57)
[2017-12-01] MEDS: Ammonium Lactate 12% Lotion (225 g) EXT SCH ×2 (10:38→13:54)
[2017-12-01] MEDS: Enoxaparin 60 mg Syringe SC SCH (10:38)
--- NOTE | 2017-12-01 12:27 | CP.PCM.DIS ---
Provider - Provider Date of Admission: 11/19/17 06:02 Attending physician: Flash Hughes Jr, MD Primary care physician: Dr. Hughes Time Spent in preparation of Discharge (in minutes): 45 Hospital Course - Lab Results Lab Results: Micro Results 11/25/17 17:41 Naris MRSA Culture - Final MRSA NOT DETECTED 11/19/17 22:44 Nose MRSA Culture (Admit) - Final MRSA NOT DETECTED Most Recent Lab Values WBC 4.2 K/uL (4.8-10.8) L 11/25/17 06:12 RBC 3.41 Mil/uL (3.80-5.20) L 11/25/17 06:12 Hgb 11.0 g/dL (11.0-16.0) 11/25/17 06:12 Hct 31.7 % (34.0-47.0) L 11/25/17 06:12 MCV 93.1 fL (81.0-99.0) 11/25/17 06:12 MCH 32.3 pg (27.0-31.0) H 11/25/17 06:12 MCHC 34.7 g/dL (33.0-37.0) 11/25/17 06:12 RDW 14.6 % (11.5-14.5) H 11/25/17 06:12 Plt Count 232 K/uL (130-400) 11/25/17 06:12 MPV 8.9 fL (7.2-11.7) 11/25/17 06:12 Neut % (Auto) 81.8 % (50.0-75.0) H 11/22/17 03:12 Lymph % (Auto) 8.9 % (20.0-40.0) L 11/22/17 03:12 [place] % (Auto) 9.0 % (0.0-10.0) 11/22/17 03:12 Eos % (Auto) 0.0 % (0.0-4.0) 11/22/17 03:12 Baso % (Auto) 0.3 % (0.0-2.0) 11/22/17 03:12 Neut # 11.8 K/uL (1.8-7.0) H 11/22/17 03:12 Lymph # 1.3 K/uL (1.0-4.3) 11/22/17 03:12 [place] # 1.3 K/uL (0.0-0.8) H 11/22/17 03:12 Eos # 0.0 K/uL (0.0-0.7) 11/22/17 03:12 Baso # 0.0 K/uL (0.0-0.2) 11/22/17 03:12 Neutrophils % (Manual) 80 % (50-75) H 11/22/17 03:12 Band Neutrophils % 1 % (0-2) 11/22/17 03:12 Lymphocytes % (Manual) 9 % (20-40) L 11/22/17 03:12 Monocytes % (Manual) 10 % (0-10) 11/22/17 03:12 Platelet Estimate Normal (NORMAL) 11/22/17 03:12 Sodium 124 mmol/L (132-148) L 11/26/17 07:22 Potassium 3.4 mmol/L (3.6-5.2) L 11/26/17 07:22 Chloride 95 mmol/L (98-107) L 11/26/17 07:22 Carbon Dioxide 25 mmol/L (22-30) 11/26/17 07:22 Anion Gap 8 (10-20) L 11/26/17 07:22 BUN 9 mg/dL (7-17) 11/26/17 07:22 Creatinine 0.4 mg/dL (0.7-1.2) L 11/26/17 07:22 Est GFR ( Amer) > 60 11/26/17 07:22 Est GFR (Non-Af Amer) > 60 11/26/17 07:22 POC Glucose (mg/dL) 105 mg/dL (65-110) 11/26/17 11:15 Random Glucose 85 mg/dL (65-105) 11/26/17 07:22 Calcium 7.0 mg/dl (8.6-10.4) L 11/26/17 07:22 Phosphorus 2.6 mg/dL (2.5-4.5) 11/25/17 21:10 Magnesium 1.7 mg/dL (1.6-2.3) 11/26/17 07:22 Total Bilirubin 0.6 mg/dL (0.2-1.3) 11/25/17 21:10 AST 24 U/L (14-36) 11/25/17 21:10 ALT 25 U/L (9-52) 11/25/17 21:10 Alkaline Phosphatase 52 U/L (38-126) 11/25/17 21:10 Troponin I < 0.0120 ng/mL (0.00-0.120) 11/20/17 06:20 Total Protein 5.3 g/dL (6.3-8.3) L 11/25/17 21:10 Albumin 2.6 g/dL (3.5-5.0) L 11/25/17 21:10 Globulin 2.7 gm/dL (2.2-3.9) 11/25/17 21:10 Albumin/Globulin Ratio 1.0 (1.0-2.1) 11/25/17 21:10 Carcinoembryonic Ag 1.2 ng/mL (0-3.0) 11/22/17 03:12 Vitamin B12 491 pg/mL (239-931) 11/20/17 06:20 TSH 3rd Generation 1.62 mIU/L (0.46-4.68) 11/20/17 06:20 Blood Type A POSITIVE 11/19/17 07:29 Antibody Screen Negative 11/19/17 07:29 - Hospital Course Hospital Course: Pt came to [facility] for R hemicolectomy. Pt tolerated it. Pt went to ICU had eposodes of Afib RVR. Seen by Mapping Technician. went on beta jocelyn. Pt had ileus and urinary retention. throughout hospital stay, pt had BM, voided, tolerated diet. Pt ambulated and is cleared to go to sub acute rehab. Discharge Exam - Head Exam Head Exam: ATRAUMATIC, NORMOCEPHALIC Discharge Plan - Follow Up Plan Condition: GOOD Disposition: REHAB FACILITY/REHAB UNIT Instructions: Pain Management After Surgery (DC), Colectomy (DC) Additional Instructions: Follow up at Dr. Hughes's office in 1-2 weeks for niurka removal Take stool softer over the counter for bowel function. Take miralax if no bowel function for 2 days. Take tylenol/ Alleve for pain Ambulate. No heavy lifting for 1 month. OK to take shower. Referrals: Flash Hughes Jr., MD [Staff Provider] -
--- NOTE | 2017-12-01 14:52 | CP.PCM.PN ---
Subjective - Date & Time of Evaluation Date of Evaluation: 12/01/17 Time of Evaluation: 14:50 - Subjective Subjective: Patient ambulating and cleared for discharge to subacute care Bowel movements for past two days Objective - Vital Signs/Intake and Output Vital Signs (last 24 hours): Temp Pulse Resp BP Pulse Ox 98.7 F 89 20 143/79 100 12/01/17 08:11 12/01/17 12:44 12/01/17 08:11 12/01/17 08:11 12/01/17 08:11 Intake and Output: 12/01/17 12/01/17 06:59 18:59 Intake Total 500 Output Total 200 Balance 300 - Medications Medications: Current Medications Aspirin (Aspirin Chewable) 81 mg PO DAILY [facility] Last Admin: 12/01/17 09:57 Dose: 81 mg Diltiazem HCl (Cardizem Cd) 180 mg PO DAILY [facility] Last Admin: 12/01/17 09:57 Dose: 180 mg Docusate Sodium (Colace) 100 mg PO DAILY [facility] Last Admin: 12/01/17 09:57 Dose: 100 mg Enoxaparin Sodium (Lovenox) 50 mg SC Q12 [facility] Last Admin: 12/01/17 10:38 Dose: Not Given Famotidine (Pepcid) 20 mg PO DAILY [facility] Last Admin: 12/01/17 09:57 Dose: 20 mg Ketorolac Tromethamine (Toradol) 10 mg PO Q6 PRN PRN Reason: Pain, Mild (1-3) Lactic Acid (Lac-Hydrin 12% Lotion (225 G)) 0 gm EXT TID [facility] Last Admin: 12/01/17 13:54 Dose: Not Given Metoclopramide HCl (Reglan) 10 mg PO ACHS [facility] Last Admin: 12/01/17 11:51 Dose: Not Given Metoprolol Tartrate (Lopressor) 5 mg IVP Q8 PRN PRN Reason: Heart rate Last Admin: 11/26/17 10:09 Dose: 5 mg Metoprolol Tartrate (Lopressor) 50 mg PO BID [facility] Last Admin: 12/01/17 09:57 Dose: 50 mg Potassium Chloride (K-Dur 20 Meq Er Tab) 20 meq PO DAILY [facility] Last Admin: 12/01/17 09:57 Dose: 20 meq Tramadol HCl (Ultram) 50 mg PO TID PRN PRN Reason: Pain, moderate (4-7) Last Admin: 11/22/17 17:56 Dose: 50 mg - Labs Labs: 11/25/17 06:12 11/26/17 07:22 - Constitutional Appears: No Acute Distress - Respiratory Exam Respiratory Exam: NORMAL BREATHING PATTERN - Cardiovascular Exam Cardiovascular Exam: REGULAR RHYTHM - GI/Abdominal Exam GI & Abdominal Exam: Soft, Normal Bowel Sounds. absent: Tenderness Additional comments: incision healing well - Extremities Exam Extremities Exam: Normal Inspection Assessment and Plan (1) Colonic mass Assessment & Plan: AWaiting surgical pathology report, still not released POD #10 ready for discharge to subacute care Will see in office in several weeks Status: Acute (2) Constipation Assessment & Plan: Conitnue Miralax or Lactulose as needed hs Ambulate and encourage po intake of food and liquids. Status: Acute (3) Weight loss Status: Acute (4) Atrial fibrillation Status: Inactive (5) Ileus following gastrointestinal surgery Status: Resolved
[2017-12-01 16:40] VITALS: BP 115/66; PULSE 84; TEMP 98.9; O2SAT 94
== END 2017-12-01 18:27 | DRG 330 ==
LOC: C.9S 06:02 → C.9I 17:52 → C.6T 11-25 19:01
PROVIDERS: ADMIT Surgery Vascular Surgery; ATTEND Surgery Vascular Surgery
PROC: 0UBMXZX Excision of Vulva, External Approach, Diagnostic (ICD-10-PCS; 2017-11-19)
PROC: 0DTF0ZZ Resection of Right Large Intestine, Open Approach (ICD-10-PCS; principal; 2017-11-19 07:45)
DX: C18.2 Malignant neoplasm of ascending colon (principal); E87.1 Hypo-osmolality and hyponatremia; I48.2 Chronic atrial fibrillation; N76.6 Ulceration of vulva; K56.7 Ileus, unspecified; I25.10 Atherosclerotic heart disease of native coronary artery without angina pectoris; K56.41 Fecal impaction; R00.0 Tachycardia, unspecified; R33.9 Retention of urine, unspecified; D72.829 Elevated white blood cell count, unspecified; R63.4 Abnormal weight loss